=== PATIENT | female | born 1985 | race Caucasian/White ===

== ENCOUNTER 2023-06-04 09:54 | Outpatient (OUT) | payer BC, SELFPAY | END 2023-06-04 09:55 | disposition home or self-care (01) | LOC: SLEEP 09:54 | PROVIDERS: PCP Family Medicine; Visit Provider Family Medicine | DX: G47.33 Obstructive sleep apnea (adult) (pediatric) (principal); R06.83 Snoring; E11.9 Type 2 diabetes mellitus without complications | CPT/HCPCS: 95806 ==

== ENCOUNTER 2023-06-27 16:33 | Outpatient (OUT) | payer BC, SELFPAY ==
--- NOTE | 2023-06-27 | US_ITS ---
[address] [address] Patient Name: RAHUL LAGUNA MRN: [id number] date: 1985 Sex: F Assigned Patient Location: US Current Patient Location: Accession/Order Number: [id number] Exam Date: 06/27/2023 17:00 Report Date: 06/27/2023 18:17 At the request of: MAGGIE BENSON Procedure: US pelvis transvaginal PROCEDURE: US pelvis transvaginal, 06/27/2023 5:00 PM EDT CLINICAL INDICATIONS: Pelvic pain and pressure 6, para 4. Uncertain LMP. COMPARISON: 04/24/2022. TECHNIQUE: Transvaginal pelvic sonogram, mae scale and color assessment. FINDINGS: Uterus: 7.0 x 5.1 x 4.9 cm. Uterus is retroverted. Endometrial echo complex 1.0 cm. There is normal uterine sonographic morphology, no focal abnormality. Right ovary: 4.1 x 2.4 x 2.4 cm, volume 12 mL. Dominant follicle measures up to 1.6 x 1.5 x 1.3 cm. Mild crenulated margin is noted. Normal sonographic morphology. Left ovary: 2.3 x 2.3 x 2.1 cm, volume 6 mL. Subcentimeter follicle seen, normal sonographic morphology. DUPLEX PELVIC VASCULATURE: There is intact flow within the ovarian tissue bilaterally by color-flow assessment. Arterial spectral tracing is identified from within. Right resistive index 0.44, left 0.45. No significant free fluid. US/US pelvis transvaginal IMPRESSION: 1. Normal uterine and left ovarian sonographic morphology. 2. Retroverted uterus. 3. 1.6 cm mild complex corpus luteal cyst. 6-12 week follow-up sonography recommended. Electronically authenticated by: CHUCKIE BENNETT Date: 06/27/2023 18:17
== END 2023-06-27 16:34 | disposition home or self-care (01) ==
PROVIDERS: PCP Family Medicine; Visit Provider Obstetrics & Gynecology
DX: R10.2 Pelvic and perineal pain (principal)
CPT/HCPCS: 76830

== ENCOUNTER 2023-07-08 13:06 | Outpatient (OUT) | payer BC, SELFPAY | END 2023-07-08 13:07 | disposition home or self-care (01) | LOC: PST 13:06 | PROVIDERS: PCP Family Medicine; Visit Provider Obstetrics & Gynecology | DX: Z01.818 Encounter for other preprocedural examination (principal); N92.0 Excessive and frequent menstruation with regular cycle; N93.9 Abnormal uterine and vaginal bleeding, unspecified; R10.2 Pelvic and perineal pain ==

== ENCOUNTER 2023-07-18 08:30 | Day surgery (SDC) | payer BC, SELFPAY ==
[2023-07-18] VITALS (7 sets, daily range): BP systolic 105–126; BP diastolic 64–82; PULSE 69–78; RESP 10–24; TEMP 36.2; O2SAT 94–100; BMI 32.4
[2023-07-18 08:41] LABS: Basophils Percent Auto 0.5 % (0.2-2.0); Eosinophils Absolute Auto 0.2 10^3/uL (0.0-0.7); Hematocrit 37.2 % (36.0-48.0); Hemoglobin 13.4 g/dL (12.0-16.0); Immature Granulocytes Abs Auto 0.01 10^3/uL (0.00-0.03); Immature Granulocytes Pct Auto 0.1 % (0.0-0.5); Lymphocytes Absolute Auto 1.9 10^3/uL (1.2-3.8); Lymphocytes Percent Auto 25.6 % (20.5-60.0); Mean Corpuscular Hemoglobin 30.7 pg (26.7-34.0); Mean Corpuscular Volume 85.1 fL (81.0-99.0); Mean Platelet Volume 10.6 fL (9.5-13.5); Monocytes Absolute Auto 0.5 10^3/uL (0.3-0.8); Monocytes Percent Auto 6.8 % (1.7-12.0); Neutrophils Absolute Auto 4.8 10^3/uL (1.4-6.5); Platelet Count 292 10^3/uL (150-450); Red Blood Count 4.37 10^6/uL (4.20-5.40); Red Cell Distribution Width 13.2 % (11.0-15.0); White Blood Count 7.4 10^3/uL (4.0-11.0)
[2023-07-18] MEDS: LACTATED RINGER'S SOLUTION 1,000 ML 50 ML IV (09:00)
[2023-07-18 09:01] LABS: HCG Quantitative <1 mIU/mL
--- NOTE | 2023-07-18 10:40 | PM.ONB ---
Brief Operative Note Date of procedure: 07/18/23 Pre-op diagnosis: menorrhagia Post-op diagnosis: same as pre-op Procedure: NAME OF PROCEDURE:[ whitney endometrial ablation with hysteroscopy] PROCEDURE: The patient was taken back to the OR where she was prepped and draped in the normal sterile fashion after being placed in the dorsal lithotomy position, after being placed under general anesthesia without difficulty. The anterior lip was grasped with a single tooth tenaculum. The patient was then gently sounds. The patient was gently sounded using Hegar dilators and the hysteroscope was passed through the cervix into the uterus where both ostia were seen. No gross evidence of polyps, fibroids or malignancy. A weighted speculum was placed in the patient?s vagina, the anterior tip of the cervix was identified and grasped with a single tooth tenaculum. The patient was gently sounded to roughly 10 cm. The cervical length was noted to be 5 cm. The Whitney ablation apparatus was set to approximately 5 in length. This was placed in through the cervix and into the uterus. After the seal was tested, at that time the total ablation of 120 seconds was performed with the Whitney without difficulty. All instruments were removed from the vagina. Anesthesia: LONA Surgeon: Kaushik Richardson Estimated blood loss (mL): 5 Pathology: none sent Condition: stable Disposition: PACU
--- NOTE | 2023-07-18 11:01 | PC.NURSE ---
Peripad dry and intact
--- NOTE | 2023-07-18 11:37 | PC.NURSE ---
Medicated for lower abdominal cramping
--- NOTE | 2023-07-18 12:13 | PC.NURSE ---
Up to bathroom and voids clear yellow with small amount blood in toliet
== END 2023-07-18 12:16 | disposition home or self-care (01) ==
PROVIDERS: PCP Family Medicine; Visit Provider Obstetrics & Gynecology
PROC: (CPT 58563; principal; 2023-07-18 09:55)
DX: N92.0 Excessive and frequent menstruation with regular cycle (principal); N93.9 Abnormal uterine and vaginal bleeding, unspecified; R10.2 Pelvic and perineal pain; E28.2 Polycystic ovarian syndrome; E66.9 Obesity, unspecified; Z86.16 Personal history of COVID-19; F41.8 Other specified anxiety disorders; Z87.891 Personal history of nicotine dependence; Z68.31 Body mass index [BMI] 31.0-31.9, adult
CPT/HCPCS: 58563; 36415; 84702; 85025; J2704

== ENCOUNTER 2023-10-22 12:00 | Outpatient (OUT) | payer OTHER, SELFPAY ==
--- NOTE | 2023-10-22 12:13 | XR_ITS ---
The [address] [address] Patient Name: RAHUL LAGUNA MRN: [id number] date: 1985 Sex: F Assigned Patient Location: [facility] Current Patient Location: [facility] Accession/Order Number: [id number] Exam Date: 10/22/2023 12:20 Report Date: 10/24/2023 08:37 At the request of: BAIRON SCHUSTER Procedure: XR knee LT 3V PROCEDURE: XR knee LT 3V HISTORY: Left Leg Pain M79.605 ; acute left knee pain; no known injury COMPARISON: None. FINDINGS: BONES:No fracture, acute abnormality, or significant arthropathy. SOFT TISSUES:No visible soft tissue swelling. EFFUSION:None visible. OTHER: Negative. XR/XR knee LT 3V IMPRESSION: 1. Normal examination. Electronically authenticated by: AYDIN BLAS Date: 10/24/2023 08:37
--- NOTE | 2023-10-22 12:14 | US_ITS ---
The [address] [address] Patient Name: RAHUL LAGUNA MRN: [id number] date: 1985 Sex: F Assigned Patient Location: [facility] Current Patient Location: Accession/Order Number: [id number] Exam Date: 10/22/2023 12:20 Report Date: 10/23/2023 02:49 At the request of: BAIRON SCHUSTER Procedure: US venous doppler LE LT EXAMINATION: US venous doppler LE LT HISTORY: Left Leg Pain M79.605 COMPARISON: No relevant comparison available. FINDINGS: REGION: Left lower extremity THROMBI: None. COMPRESSIBILITY: Normal compressibility. FLOW: Normal waveform and antegrade flow between 5 and 20 cm/s. OTHER: None. US/US venous doppler LE LT IMPRESSION: 1. No deep vein thrombus within the left lower extremity. Electronically authenticated by: AYDIN BLAS Date: 10/23/2023 02:49
== END 2023-10-22 12:01 | disposition home or self-care (01) ==
PROVIDERS: PCP Family Medicine; Visit Provider Family Medicine
DX: M79.605 Pain in left leg (principal)
CPT/HCPCS: 73562; 93971

== ENCOUNTER 2024-04-06 21:47 | Emergency (ER) | payer OTHER, SELFPAY ==
[2024-04-06 21:52] VITALS: BP 149/83; TEMP 36.6; BMI 28.0
--- OUTSIDE RECORDS SUMMARY | 2024-04-06 21:59 | XMS_ITS | CCD ---
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 Unavailable Unavailable NELSON, MAXI H. Unavailable Unavailable BAIRON PERLA Unavailable Unavailable NELSON, MAXI H. Unavailable Unavailable NELSON, MAXI H. Unavailable Unavailable BAIRON PERLA Unavailable Unavailable Bairon Perla Unavailable Unavailable Unavailable Pan, Dr. Bairon Mcdowell [facility] Unavail able Abi, [place] [address] [place] Referring Unavailable Abi, [place] Attending Unavailable Abi, [place] Attending Unavailable Pan, Dr. Bairon Mcdowell [facility] Unavail able Abi, Junaid Referring Unavailable Abi, [place] Attending Unavailable HimanshumiDr. Griselda dinh Jr Referring U navailable Pan, Dr. Bairon Mcdowell [facility] Unavail able Abi, [place] [address] [place] Attending Unavailable Pan, Dr. Bairon Mcdowell Primary [facility] Unavail able Abi, Junaid Admitting Unavailable Abi, Junaid Referring Unavailable HOCaden ., DR WADDELL Primary Care Unavailable PAN ., DR WADDELL Admitting Unavailable HOY ., DR WADDELL Attending Unavailable HOY ., DR WADDELL Consulting Unavailable KELLEY ., DR SERRANO Attending Unavailable KELLEY ., DR SERRANO Consulting Unavailable KELLEY ., DR SERRANO Admitting Unavailable PAN ., DR WADDELL Primary Care Unavailable Allergies Allergy Classification Reported Allergen(s) Allergy Type Date of Onset Reaction(s) Facility (7 sources) bee pollen Allergy to substance (finding) MG-Otolaryngol [facility] Work Phone: (7 sources) Itraconazole; Translations: [Sporanox] Drug Allergy MG-Otolaryngol [facility] Work Phone: (1 source) Arlene monique pollen extract Drug Allergy 12-01-2015 [facility] Medications Completed/Discontinued Medications Medication Drug Class(es) Dates Sig (Normalized) Sig (Original) ALPRAZolam 0.5 mg oral tablet (2 sources) Benzodiazepine Start: 01-09-2023 ALPRAZolam 0.5 MG Oral Tablet Quantity: 5 Refills: 0 Ordered: 09-Jan-2023 DO Start : 09-Jan-2023 Active amoxicillin 875 mg / clavulanate 125 mg oral tablet (2 sources) Penicillin-class Antibacterial Start: 01-02-2022 End: 03-08-2022 take 1 tablet by mouth twice daily Amoxicillin-Pot Clavulanate 875-125 MG Oral Tablet TAKE 1 TABLET BY MOUTH TWICE DAILY Quantity: 60 Refills: 0 Ordered: 02-Jan-2022 DO Start : 02-Jan-2022 End : 08-Mar-2022 Complete 24 hr buPROPion hydrochloride 300 mg extended release oral tablet (9 sources) Aminoketone Start: 09-21-2021 take 1 tablet by mouth every twenty-four hours buPROPion HCl ER (XL) 300 MG Oral Tablet Extended Release 24 Hour Quantity: 90 Refills: 0 Ordered: 06-Dec-2021 DO Start : 21-Sep-2021 Active Start: 06-05-2021 End: 03-08-2022 take 1 tablet by mouth every twenty-four hours buPROPion HCl ER (XL) 150 MG Oral Tablet Extended Release 24 Hour Quantity: 90 Refills: 0 Ordered: 23-Oct-2021 DO Start : 05-Jun-2021 End : 08-Mar-2022 Complete dexamethasone 6 mg oral tablet (4 sources) Corticosteroid Start: 12-12-2021 End: 03-08-2022 Dexamethasone 6 MG Oral Tablet Quantity: 6 Refills: 0 Ordered: 12-Dec-2021 DO Start : 12-Dec-2021 End : 08-Mar-2022 Complete Start: 10-24-2021 End: 03-08-2022 Dexamethasone Sodium Phospha te 120 MG/30ML Injection Solution TAKE TO PT APPOINTMENT USE DIRECTED Quantity: 30 Refills: 0 Ordered: 26-Oct-2021 DO Start : 24-Oct-2021 End : 08-Mar-2022 Complete diclofenac sodium 75 mg delayed release oral tablet (4 sources) Nonsteroidal Anti-inflammatory Drug Start: 01-26-2021 End: 09-13-2022 Diclofenac Sodium 75 MG Oral Tablet Delayed Release Quantity: 30 Refills: 0 Ordered: 09-May-2021 DO Start : 26-Jan-2021 End : 13-Sep-2022 Complete Ethinyl Estradiol / Ferrous fumarate / Norethindrone (2 sources) Estrogen Start: 01-09-2023 Lo Loestrin Fe 1 MG-10 MCG / 10 MCG Oral Tablet Quantity: 28 Refills: 0 Ordered: 09-Jan-2023 DO Start : 09-Jan-2023 Active fluconazole 150 mg oral tablet (2 sources) Azole Antifungal Start: 01-02-2022 End: 03-08-2022 Fluconazole 150 MG Oral Tablet Quantity: 1 Refills: 0 Ordered: 11-Jan-2022 DO Start : 02-Jan-2022 End : 08-Mar-2022 Complete hydrOXYzine hydrochloride 25 mg oral tablet (2 sources) Antihistamine Start: 12-21-2021 End: 03-08-2022 hydrOXYzine HCl - 25 MG Oral Tablet Quantity: 120 Refills: 0 Ordered: 21-Dec-2021 DO Start : 21-Dec-2021 End : 08-Mar-2022 Complete ipratropium bromide 0.042 mg/actuat metered dose nasal spray (4 sources) Anticholinergic Start: 08-11-2023 Ipratropium Br omide 0.06 % Nasal Solution USE 2 SPRAYS IN EACH NOSTRIL 2-3 TIMES DAILY. Quantity: 1 Refills: 3 Ordered: 11-Aug-2023 Junaid Alex MD Start : 11-Aug-2023 Active Start: 01-03-2023 take 2 spray(s) nasa l route twice daily Ipratropium [place] 0.03 % Nasal Solution USE 2 SPRAYS IN EACH NOSTRIL TWICE DAILY. Quantity: 1 Refills: 5 Ordered: 03-Jan-2023 Junaid Alex MD Start : 03-Jan-2023 Active levoFLOXacin 500 mg oral tablet (2 sources) Quinolone Antimicrobial Start: 10-04-2021 End: 03-08-2022 levoFLOXacin 500 MG Oral Tablet Quantity: 10 Refills: 0 Ordered: 04-Oct-2021 DO Start : 04-Oct-2021 End : 08-Mar-2022 Complete liothyronine sodium 0.005 mg oral tablet (7 sources) l-Triiodothyronine Start: 03-01-2022 take 1 tablet by mouth once daily Liothyronine Sodium 5 MCG Oral Tablet TAKE 1 TABLET BY MOUTH EVERY DAY Quantity: 90 Refills: 0 Ordered: 01-Mar-2022 DO Start : 01-Mar-2022 Active 24 hr metFORMIN hydrochloride 500 mg extended release oral tablet (2 sources) Biguanide Start: 04-10-2022 take 1 tablet by mouth once daily metFORMIN HCl ER 500 MG Oral Tablet Extended Release 24 Hour TAKE 1 TABLET BY MOUTH DAILY Quantity: 90 Refills: 0 Ordered: 10-Apr-2022 DO Start : 10-Apr-2022 Active methylPREDNISolone 4 MG Oral Tablet Therapy Pack (2 sources) Start: 10-22-2021 End: 03-08-2022 methylPREDNISolone 4 MG Oral Tablet Therapy Pack Quantity: 21 Refills: 0 Ordered: 22-Oct-2021 DO Start : 22-Oct-2021 End : 08-Mar-2022 Complete metroNIDAZOLE 500 mg oral tablet (2 sources) Nitroimidazole Antimicrobial Start: 10-12-2021 End: 03-08-2022 metroNIDAZOLE 500 MG Oral Tablet Quantity: 30 Refills: 0 Ordered: 12-Oct-2021 DO Start : 12-Oct-2021 End : 08-Mar-2022 Complete Multi Vitamin TABS (7 sources) Multi Vitamin TA BS Quantity: 0 Refills: 0 Ordered: 08-Mar-2022 DO Active mupirocin 0.02 mg/mg topical ointment (7 sources) RNA Synthetase Inhibitor Antibacterial Start: 03-08-2022 Mupirocin 2 % External Ointment APPLY A SMALL AMOUNT 3 TIMES DAILY DIRECTED. Quantity: 1 Refills: 3 Ordered: 08-Mar-2022 Junaid Alex MD Start : 08-Mar-2022 Active phentermine hydrochloride 37.5 mg oral tablet (2 sources) Sympathomimetic Amine Anorectic Start: 07-09-2022 take 1 tablet by mouth once daily Phentermine HCl - 37.5 MG Oral Tablet TAKE 1 TABLET BY MOUTH EVERY DAY Quantity: 30 Refills: 0 Ordered: 23-Jul-2022 DO Start : 09-Jul-2022 Active predniSONE 20 mg oral tablet (2 sources) Start: 01-02-2022 End: 03-08-2022 predniSONE 20 MG Oral Tablet Quantity: 12 Refills: 0 Ordered: 02-Jan-2022 DO Start : 02-Jan-2022 End : 08-Mar-2022 Complete Probiotic CAPS (7 sources) Probiotic CAPS Quantity: 0 Refills: 0 Ordered: 08-Mar-2022 DO Active 0.25 mg, 0.5 mg dose 1.5 ml semaglutide 1.34 mg/ml pen injector (2 sources) Start: 11-11-2022 Ozempic (0.25 or 0.5 MG/DOSE) 2 MG/1.5ML SOPN INJECT 0.25 MG SUBCUTANEOUS ONCE A WEEK Quantity: 2 Refills: 0 Ordered: 12-Nov-2022 DO Start : 11-Nov-2022 Active Vitamin D3 CAPS (7 sources) Vitamin D3 CAPS Quantity: 0 Refills: 0 Ordered: 08-Mar-2022 DO Active Problems Active Problems Problem Classification Problem Date Documented Da te Episodic/Chronic Immunizations and screening for infectious disease (1 source) Encounter for screening for human papillomavirus (HPV); Translations: [ENC SCREENING HUMAN PAPILLOMAVIRUS] Onset: 3 Episodic Mood disorders (1 source) Mood disorders; Translations: [Depression, unspecified] Onset: 2 Other acquired deformities (7 sources) Finding of nasal deformity; Translations: [Acquired deformity of nose] Episodic Other gastrointestinal disorders (7 sources) History of gastroesophageal reflux disease; Translations: [Personal history of other diseases of digestive system] Episodic Other lower respiratory disease (7 sources) Difficulty breathing; Translations: [Other respiratory abnormalities] Episodic Other nervous system disorders (1 source) Other acute postprocedural pain; Translations: [Other acute postprocedural pain] Onset: 8 Episodic Other nervous system disorders (7 sources) Sense of smell impaired; Translations: [Disturbances of sensation of smell and taste] Episodic Other screening for suspected conditions (not mental disorders or infectious disease) (4 sources) Encounter for screening for malignant neoplasm of cervix; Translations: [ENC SCREENING MALIG NEOPLASM CERV] Onset: 3 Episodic Other skin disorders (7 sources) Swollen nose; Translations: [Swelling, mass, or lump in head and neck] Episodic Other upper respiratory disease (7 sources) Chronic rhinitis; Translations: [Chronic rhinitis] Chronic Other upper respiratory disease (7 sources) Deviated nasal septum; Translations: [Deviated nasal septum] Episodic Other upper respiratory disease (7 sources) Hypertrophy of nasal turbinates; Translations: [Hypertrophy of nasal turbinates] Episodic Other upper respiratory disease (7 sources) Incompetence of nasal valve; Translations: [Other disease of nasal cavity and sinuses] Episodic Other upper respiratory disease (7 sources) Nasal congestion; Translations: [Other disease of nasal cavity and sinuses] Episodic Residual codes; unclassified (7 sources) Swelling of body region; Translations: [Edema] Episodic Residual codes; unclassified (1 source) Pain, unspecified; Translations: [Pain, unspecified] Onset: 8 Screening and history of mental health and substance abuse codes (7 sources) H/O: depression; Translations: [Personal history of other mental disorders] Episodic Thyroid disorders (1 source) Hypothyroidism, unspecified; Translations: [Hypothyroidism, unspecified] Onset: 2 Chronic Past or Other Problems Problem Classification Problem Date Documented Da te Episodic/Chronic Other acquired deformities (1 source) Acquired deformity of nose; Translations: [Acquired deformity of nose] Onset: 09-06-2022 Episodic Other upper respiratory disease (3 sources) Hypertrophy of nasal turbinates; Translations: [Hypertrophy of nasal turbinates] Onset: 09-06-2022 Episodic Other upper respiratory disease (3 sources) Deviated nasal septum; Translations: [Deviated nasal septum] Onset: 09-06-2022 Episodic Other upper respiratory disease (4 sources) Other specified disorders of nose and nasal sinuses; Translations: [Other specified disorders of nose and nasal sinuses] Onset: 09-06-2022 Episodic Results Test Name Value Interpretation Reference Range Facility CBC AUTO DIFFon 04-25-2023 BASO # 0.0 103/ul Normal 0.0-0.1 [facility] Comment on above: Performed By: #### C BC #### [facility] [address] [place] [address] Dr. Gold Hartmann Basophils/100 WBC (Bld) 0.4 % Normal 0.2-2.0 [facility] Comment on above: Performed By: #### C BC #### [facility] [address] [place] [address] Dr. Gold Hartmann EO # 0.1 103/ul Normal 0.0-0.7 [facility] Comment on above: Performed By: #### C BC #### [facility] [address] [place] [address] Dr. Gold Hartmann Eosinophils/100 WBC (Bld) 1.5 % Normal 0.9-7.0 [facility] Comment on above: Performed By: #### C BC #### [facility] [address] [place] [address] Dr. Gold Hartmann Erythrocyte distribution width (RBC) [Ratio] 13.0 % Normal 11.0-15.0 [facility] Comment on above: Performed By: #### C BC #### [facility] [address] [place] [address] Dr. Gold Hartmann Hematocrit (Bld) [Volume fraction] 39.0 % Normal 36.0-48.0 [facility] Comment on above: Performed By: #### C BC #### [facility] [address] [place] [address] Dr. Gold Hartmann Hemoglobin (Bld) [Mass/Vol] 13.3 g/dL Normal 12.0-16.0 [facility] Comment on above: Performed By: #### C BC #### [facility] [address] [place] [address] Dr. Gold Hartmann IG # 0.02 10e3/ul Normal 0.00-0.03 [facility] Comment on above: Performed By: #### C BC #### [facility] [address] [place] [address] Dr. Gold Hartmann IG % 0.2 % Normal 0.0-0.5 [facility] Comment on above: Performed By: #### C BC #### [facility] [address] [place] [address] Dr. Gold Hartmann LYMPH # 2.3 103/ul Normal 1.2-3.8 [facility] Comment on above: Performed By: #### C BC #### [facility] [address] [place] [address] Dr. Gold Hartmann Lymphocytes/100 WBC (Bld) 27.6 % Normal 20.5-60.0 [facility] Comment on above: Performed By: #### C BC #### [facility] [address] [place] [address] Dr. Gold Hartmann MANUAL DIFF REQ NO Normal [facility] Comment on above: Performed By: #### C BC #### [facility] [address] [place] [address] Dr. Gold Hartmann MCH (RBC) [Entitic mass] 29.8 pg Normal 26.7-34.0 [facility] Comment on above: Performed By: #### C BC #### [facility] [address] [place] [address] Dr. Gold Hartmann MCHC (RBC) [Mass/Vol] 34.1 g/dL Normal 29.9-35.2 [facility] Comment on above: Performed By: #### C BC #### [facility] [address] [place] [address] Dr. Gold Hartmann MCV (RBC) [Entitic vol] 87.2 fL Normal 81.0-99.0 [facility] Comment on above: Performed By: #### C BC #### [facility] [address] [place] [address] Dr. Gold Hartmann MONO # 0.4 103/ul Normal 0.3-0.8 [facility] Comment on above: Performed By: #### C BC #### [facility] [address] [place] [address] Dr. Gold Hartmann Monocytes/100 WBC (Bld) 5.2 % Normal 1.7-12.0 [facility] Comment on above: Performed By: #### C BC #### [facility] [address] [place] [address] Dr. Gold Hartmann NEUT # 5.4 103/ul Normal 1.4-6.5 [facility] Comment on above: Performed By: #### C BC #### [facility] [address] [place] [address] Dr. Gold Hartmann Neutrophils/100 WBC (Bld) 65.1 % Normal 43.0-75.0 [facility] Comment on above: Performed By: #### C BC #### [facility] [address] [place] [address] Dr. Gold Hartmann Platelet mean volume (Bld) [Entitic vol] 10.2 fL Normal 9.5-13.5 [facility] Comment on above: Performed By: #### C BC #### [facility] [address] [place] [address] Dr. Gold Hartmann PLT 317 103/ul Normal 150-450 [facility] Comment on above: Performed By: #### C BC #### [facility] [address] [place] [address] Dr. Gold Hartmann RBC 4.47 106/ul Normal 4.20-5.40 [facility] Comment on above: Performed By: #### C BC #### [facility] [address] [place] [address] Dr. Gold Hartmann WBC 8.3 103/ul Normal 4.0-11.0 [facility] Comment on above: Performed By: #### C BC #### [facility] [address] [place] [address] Dr. Gold Hartmann FREE T3on 04-25-2023 FREE T3 2.90 pg/mlL Normal 2.18-3.98 [facility] Comment on above: Performed By: #### T SH, CMP, FT3, LIPID, T4 #### [facility] [address] [place] [address] Dr. Gold Hartmann GLYCOHEMOGLOBIN A1Con 2022 ADA RECOMMENDATION SEE BELOW Normal [facility] Comment on above: Result Comment: ADA RECOMMENDED LIMIT 4.0 - 6.0 ADA THERAPEUTIC TARGET < 7.0 ACTION SUGGESTED > 7.0 Performed By: #### A 1C #### [facility] [address] [place] [address] Dr. Gold Hartmann Glucose [Mass/Vol] 82 mg/dL Normal [facility] Comment on above: Performed By: #### A 1C #### [facility] [address] [place] [address] Dr. Gold Hartmann HbA1c (Bld) [Mass fraction] 4.5 % Normal 4.5-6.2 [facility] Comment on above: Performed By: #### A 1C #### [facility] [address] [place] [address] Dr. Gold Hartmann IRONon 04-25-2023 Iron [Mass/Vol] 69.0 ug/dL Normal 50.0-170.0 [facility] Comment on above: Performed By: #### V ITAD, IRON #### [facility] [address] [place] [address] Dr. Gold Hartmann LIPID PROFILEon 04-25-2023 CHOL-HDL RATIO NORM SEE BELOW Normal [facility] Comment on above: Result Comment: 3.3 - 4.4 LOW RISK 4.4 - 7.1 AVERAGE RISK 7.1 - 11.0 MODERATE RISK >11.0 HIGH RISK Performed By: #### T SH, CMP, FT3, LIPID, T4 #### [facility] [address] [place] [address] Dr. Gold Hartmann Cholesterol [Mass/Vol] 179 mg/dL Normal <=200 [facility] Comment on above: Performed By: #### T SH, CMP, FT3, LIPID, T4 #### [facility] [address] [place] [address] Dr. Gold Hartmann Cholesterol in HDL [Mass/Vol] 93 mg/dL Critically high 40-60 [facility] Comment on above: Performed By: #### T SH, CMP, FT3, LIPID, T4 #### [facility] [address] [address] [address] Gold Hartmann Cholesterol in LDL [Mass/Vol] 69.0 mg/dL Normal [facility] Comment on above: Performed By: #### T SH, CMP, FT3, LIPID, T4 #### [facility] [address] [place] [address] Dr. Gold Hartmann Cholesterol.total/Ch olesterol in HDL [Mass ratio] 1.9 {ratio} Normal [facility] Comment on above: Performed By: #### T SH, CMP, FT3, LIPID, T4 #### [facility] [address] [address] [address] Gold Hartmann HDL NORMAL > or = 60 mg/dl - LO W CARDIOVASCULAR RISK <40 mg/dl - HIGH CARDIOVASCULAR RISK Normal [facility] Comment on above: Performed By: #### T SH, CMP, FT3, LIPID, T4 #### [facility] [address] [address] [address] Gold Hartmann LDL CALC NORMAL SEE BELOW Normal [facility] Comment on above: Result Comment: <100 mg/dl OPTIMAL 100 - 129 mg/dl NEAR OR ABOVE OPTIMAL 130 - 159 mg/dl BORDERLINE HIGH 160 - 189 mg/dl HIGH >190 mg/dl VERY HIGH Performed By: #### T SH, CMP, FT3, LIPID, T4 #### [facility] [address] [address] [address] Gold Hartmann Triglyceride [Mass/Vol] 85 mg/dL Normal <=150 [facility] Comment on above: Performed By: #### T SH, CMP, FT3, LIPID, T4 #### [facility] [address] [place] [address] Dr. Gold Hartmann VLDL CALC 17.0 mg/dL Normal [facility] Comment on above: Performed By: #### T SH, CMP, FT3, LIPID, T4 #### [facility] [address] [place] [address] Dr. Gold Hartmann PROF 14(COMP METB)on 023 Albumin [Mass/Vol] 3.7 g/dL Normal 3.4-5.0 [facility] Comment on above: Performed By: #### T SH, CMP, FT3, LIPID, T4 #### [facility] [address] [place] [address] Dr. Gold Hartmann Albumin/Globulin [Mass ratio] 1.0 {ratio} Normal [facility] Comment on above: Performed By: #### T SH, CMP, FT3, LIPID, T4 #### [facility] [address] [place] [address] Dr. Gold Hartmann ALP [Catalytic activity/Vol] 75 U/L Normal 46-116 [facility] Comment on above: Performed By: #### T SH, CMP, FT3, LIPID, T4 #### [facility] [address] [place] [address] Dr. Gold Hartmann ALT [Catalytic activity/Vol] 22 U/L Normal 14-59 [facility] Comment on above: Performed By: #### T SH, CMP, FT3, LIPID, T4 #### [facility] [address] [place] [address] Dr. Gold Hartmann Anion gap [Moles/Vol] 11.9 mmol/L Normal [facility] Comment on above: Performed By: #### T SH, CMP, FT3, LIPID, T4 #### [facility] [address] [place] [address] Dr. Gold Hartmann AST [Catalytic activity/Vol] 14 U/L Critically low 15-37 [facility] Comment on above: Performed By: #### T SH, CMP, FT3, LIPID, T4 #### [facility] [address] [place] [address] Dr. Gold Hartmann Bilirubin [Mass/Vol] 0.5 mg/dL Normal 0.2-1.0 [facility] Comment on above: Performed By: #### T SH, CMP, FT3, LIPID, T4 #### [facility] [address] [place] [address] Dr. Gold Hartmann Calcium [Mass/Vol] 9.0 mg/dL Normal 8.5-10.1 [facility] Comment on above: Performed By: #### T SH, CMP, FT3, LIPID, T4 #### [facility] [address] [place] [address] Dr. Gold Hartmann Chloride [Moles/Vol] 104 mmol/L Normal 98-107 [facility] Comment on above: Performed By: #### T SH, CMP, FT3, LIPID, T4 #### [facility] [address] [place] [address] Dr. Gold Hartmann CO2 [Moles/Vol] 26.9 mmol/L Normal 21.0-32.0 [facility] Comment on above: Performed By: #### T SH, CMP, FT3, LIPID, T4 #### [facility] [address] [place] [address] Dr. Gold Hartmann Creatinine [Mass/Vol] 0.77 mg/dL Normal 0.55-1.02 [facility] Comment on above: Performed By: #### T SH, CMP, FT3, LIPID, T4 #### [facility] [address] [place] [address] Dr. Gold Hartmann EGFR-AF [place] >60 Normal >=60 [facility] Comment on above: Performed By: #### T SH, CMP, FT3, LIPID, T4 #### [facility] [address] [place] [address] Dr. Gold Hartmann EGFR-NON AF [place] >60 Normal >=60 [facility] Comment on above: Performed By: #### T SH, CMP, FT3, LIPID, T4 #### [facility] [address] [place] [address] Dr. Gold Hartmann Globulin (S) [Mass/Vol] 3.6 g/dL Normal [facility] Comment on above: Performed By: #### T SH, CMP, FT3, LIPID, T4 #### [facility] [address] [place] [address] Dr. Gold Hartmann Glucose [Mass/Vol] 79 mg/dL Normal 74-106 [facility] Comment on above: Performed By: #### T SH, CMP, FT3, LIPID, T4 #### [facility] [address] [place] [address] Dr. Gold Hartmann Potassium [Moles/Vol] 3.8 mmol/L Normal 3.5-5.1 [facility] Comment on above: Performed By: #### T SH, CMP, FT3, LIPID, T4 #### [facility] [address] [place] [address] Dr. Gold Hartmann Protein [Mass/Vol] 7.3 g/dL Normal 6.4-8.2 [facility] Comment on above: Performed By: #### T SH, CMP, FT3, LIPID, T4 #### [facility] [address] [place] [address] Dr. Gold Hartmann Sodium [Moles/Vol] 139 mmol/L Normal 136-145 [facility] Comment on above: Performed By: #### T SH, CMP, FT3, LIPID, T4 #### [facility] [address] [place] [address] Dr. Gold Hartmann Urea nitrogen [Mass/Vol] 11.0 mg/dL Normal 7.0-18.0 [facility] Comment on above: Performed By: #### T SH, CMP, FT3, LIPID, T4 #### [facility] [address] [place] [address] Dr. Gold Hartmann Urea nitrogen/Creatinine [Mass ratio] 14.3 mg/mg Normal [facility] Comment on above: Performed By: #### T SH, CMP, FT3, LIPID, T4 #### [facility] [address] [place] [address] Dr. Gold Hartmann T4on 04-25-2023 T4 [Mass/Vol] 12.50 ug/dL Normal 4.80-13.90 [facility] Comment on above: Performed By: #### T SH, CMP, FT3, LIPID, T4 #### [facility] [address] [place] [address] Dr. Gold Hartmann TSHon 04-25-2023 TSH 1.628 uIU/mL Normal 0.358-3.740 [facility] Comment on above: Performed By: #### T SH, CMP, FT3, LIPID, T4 #### [facility] [address] [place] [address] Dr. Gold Hartmann VITAMIN D 25 OHon 04-25-2023 VIT D 25-OH 64.4 ng/mL Normal [facility] Comment on above: Performed By: #### V ITAD, IRON #### [facility] [address] [place] [address] Dr. Gold Hartmann VIT D RANGES SEE BELOW Normal [facility] Comment on above: Result Comment: <20 ng/mL Vit D deficient 20 - <30 ng/mL Vit D insufficient 30 - 100 ng/mL Vit D sufficient >100 ng/mL Potential Toxicity Performed By: #### V ITAD, IRON #### [facility] [address], [place] [address] Dr. Gold Hartmann PAP ACOG PANEL 2: 30 to 65on 04-24-2023 Age Gdln ACOG Testing 30-65 Normal [facility] Comment on above: Performed By: #### [id number] #### [facility] [address], [place] [address] Dr. 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 History of Present Illnessdoing well after reconstructive rhinoplasty septum midline nasal airway patent bl continue saline sprays RTC 4-6 months Active Problems Chronic rhinitis (472.0) (J31.0) Decreased sense of smell (781.1) (R43.8) Difficulty breathing (786.09) (R06.89) Nasal deformity (738.0) (M95.0) Nasal septal deviation (470) (J34.2) Nasal turbinate hypertrophy (478.0) (J34.3) Nasal valve collapse (478.19) (J34.89) Nose congestion (478.19) (R09.81) Swelling of body region (782.3) (R60.9) Swollen nose (784.2) (R22.0) Past Medical History History of depression (V11.8) (Z86.59) History of gastroesophageal reflux (GERD) (V12.79) (Z87.19) Surgical History History of Cervical disc replacement History of Nasal septoplasty History of Sinus surgery Family History Family history of Alive and well Family history of Anxiety Family history of depression (V17.0) (Z81.8) Family history of Alive and well Family history of hypertension (V17.49) (Z82.49) Social History Lives with Non-smoker (V49.89) (Z78.9) Social alcohol use (V49.89) (Z78.9) Unemployed (V62.0) (Z56.0) Allergies Sporanox Recorded By: Linnea Sher; 03/08/2022 2:03:07 PM No Known Food Allergies Recorded By: Linnea Sher; 03/08/2022 2:03:07 PM Pollen Recorded By: Linnea Sher; 03/08/2022 2:03:07 PM Current Meds Medication NameInstruction ALPRAZolam 0.5 MG Oral Tablet buPROPion HCl ER (XL) 300 MG Oral Tablet Extended Release 24 Hour Ipratropium [place] 0.03 % Nasal SolutionUSE 2 SPRAYS IN EACH NOSTRIL TWICE DAILY. Liothyronine Sodium 5 MCG Oral TabletTAKE 1 TABLET BY MOUTH EVERY DAY Lo Loestrin Fe 1 MG-10 MCG / 10 MCG Oral Tablet metFORMIN HCl ER 500 MG Oral Tablet Extended Release 24 HourTAKE 1 TABLET BY MOUTH DAILY Multi Vitamin TABS Mupirocin 2 % External OintmentAPPLY A SMALL AMOUNT 3 TIMES DAILY DIRECTED. Ozempic (0.25 or 0.5 MG/DOSE) 2 MG/1.5ML Subcutaneous Solution Pen-injectorINJECT 0.25 MG SUBCUTANEOUS ONCE A WEEK Phentermine HCl - 37.5 MG Oral TabletTAKE 1 TABLET BY MOUTH EVERY DAY Probiotic CAPS Vitamin D3 CAPS 'Scores and Scales' Signatures Electronically signed by : Junaid Alex MD; Jan 24 2023 10:45AM EST (Author) Normal [facility] Tobacco Screening.on 023 Fall risk assessment c) Not medically indicated [facility] Work Phone: Tobacco use status CPHS b) No [facility] Work Phone: Established Visit (Otolaryng ology)on 09-13-2022 Established Visit (Otolaryngology) Diagnoses/Problems Difficulty breathing (786.09) (R06.89) History of Present Illness doing well. here for splint removal nasal splints removed nasal swelling expected septum midline nasal airway patent bl continue saline sprays and vaseline ointment to nares RTC 4-6 months Active Problems Chronic rhinitis (472.0) (J31.0) Decreased sense of smell (781.1) (R43.8) Difficulty breathing (786.09) (R06.89) Nasal deformity (738.0) (M95.0) Nasal septal deviation (470) (J34.2) Nasal turbinate hypertrophy (478.0) (J34.3) Nasal valve collapse (478.19) (J34.89) Nose congestion (478.19) (R09.81) Swelling of body region (782.3) (R60.9) Swollen nose (784.2) (R22.0) Past Medical History History of depression (V11.8) (Z86.59) History of gastroesophageal reflux (GERD) (V12.79) (Z87.19) Surgical History History of Cervical disc replacement History of Nasal septoplasty History of Sinus surgery Family History Family history of Alive and well Family history of Anxiety Family history of depression (V17.0) (Z81.8) Family history of Alive and well Family history of hypertension (V17.49) (Z82.49) Social History Lives with Non-smoker (V49.89) (Z78.9) Social alcohol use (V49.89) (Z78.9) Unemployed (V62.0) (Z56.0) Allergies Sporanox Recorded By: Linnea Sher; 03/08/2022 2:03:07 PM No Known Food Allergies Recorded By: Linnea Sher; 03/08/2022 2:03:07 PM Pollen Recorded By: Linnea Sher; 03/08/2022 2:03:07 PM Current Meds Medication NameInstruction buPROPion HCl ER (XL) 300 MG Oral Tablet Extended Release 24 Hour Liothyronine Sodium 5 MCG Oral TabletTAKE 1 TABLET BY MOUTH EVERY DAY Multi Vitamin TABS Mupirocin 2 % External OintmentAPPLY A SMALL AMOUNT 3 TIMES DAILY DIRECTED. Probiotic CAPS Vitamin D3 CAPS Vitals Vital Signs Recorded: 13Sep2022 10:53AM Height5 ft 3 in Wletqo880 lb 8 oz BMI Gopffpwubs00.67 kg/m2 BSA Calculated1.79 Tobacco Useb) No PHQ-2 #1. Over the last 2 weeks have you felt down, depressed or hopeless? (If yes, answer PHQ-9 below)No PHQ-2 #2. Over the last 2 weeks have you felt little interest or pleasure in doing things? (If yes, answer PHQ-9 below)No Falls Screening (Age 18+)a) No falls within the last year Pain Scale2/10 'Scores and Scales' Signatures Electronically signed by : Junaid Alex MD; Sep 14 2022 8:57AM EST (Author) Normal [facility] Tobacco Screening.on Adult depression screening assessment No [facility] Work Phone: Fall risk assessment a) No falls within the last year [facility] Work Phone: Tobacco use status CPHS b) No [facility] Work Phone: Order Reconciliationon 09-06 Order Reconciliation Page 1 Discharge Reconciliation Document Reconciliation Type: Discharge requested on behalf of Shaylee Juan (Resident) done by Shaylee Juan (Resident)) Discharge - Reconciliation: 06-Sep-2022 14:51 by: Shaylee Juan (Resident)) Home Medications EnteredHOME MEDICATIONS AT DISCHARGE DateReconciliation Comment/ Additional Information north 29-Aug-2022 13:25 north 29-Aug-2022 13:25 sandraa is continued as north buPROPion 300 mg/24 hours (XL) oral tablet, extended release 1 tab(s) orally every 24 hours 29-Aug-2022 13:24 buPROPion 300 mg/24 hours (XL) oral tablet, extended release 1 tab(s) orally every 24 hours 29-Aug-2022 13:24 buPROPion 300 mg/24 hours (XL) oral tablet, extended release is continued as buPROPion 300 mg/24 hours (XL) oral tablet, extended release liothyronine 5 mcg oral tablet 1 tab(s) orally once a day 29-Aug-2022 13:25 liothyronine 5 mcg oral tablet 1 tab(s) orally once a day 29-Aug-2022 13:25 liothyronine 5 mcg oral tablet is continued as liothyronine 5 mcg oral tablet mutivitamin 29-Aug-2022 13:25 mutivitamin 29-Aug-2022 13:25 mutivitamin is continued as mutivitamin pro biotic 1 cap(s) once a day 06-Sep-2022 12:06 pro biotic 1 cap(s) once a day 06-Sep-2022 12:06 pro biotic is continued as pro biotic Vitamin D3 125 mcg (5000 intl units) oral capsule 1 cap(s) orally once a day 29-Aug-2022 13:25 Vitamin D3 125 mcg (5000 intl units) oral capsule 1 cap(s) orally once a day 29-Aug-2022 13:25 Vitamin D3 125 mcg (5000 intl units) oral capsule is continued as Vitamin D3 125 mcg (5000 intl units) oral capsule Current OrdersDateHOME MEDICATIONS AT DISCHARGE DateReconciliation Comment/ Additional Information Acetaminophen Tablet (TYLENOL)DOSE = 650 mg Oral Every 4 Hours, PRN Pain - Mild (1-3) (PACU) when able to take OralClinician Notes: Brynn-operative order ONLY 06-Sep-2022 12:18 Acetaminophen is not required CEFAZOLIN 1GM INJ_IPRO SolutionGive 2 gram(s), IntraVenous, ONCE 06-Sep-2022 14:41 CEFAZOLIN 1GM INJ_IPRO is not required Dexamethasone 10 mg/mL 1 mL Vial PF_IPRO SolutionGive 4 mg, IntraVenous, ONCE 06-Sep-2022 14:41 Dexamethasone 10 mg/mL 1 mL Vial PF_IPRO is not required ePHEDrine 50 mg/mL 1 mL Ampule_IPRO SolutionGive 30 mg, IntraVenous, ONCE 06-Sep-2022 14:42 ePHEDrine 50 mg/mL 1 mL Ampule_IPRO is not required FENTANYL 50MCG/1ML 2ML INJ_IPRO SolutionGive 100 microgram(s), IntraVenous, ONCE 06-Sep-2022 14:42 FENTANYL 50MCG/1ML 2ML INJ_IPRO is not required HYDROmorphone 1 mg/mL 1 mL Ampule_IPRO SolutionGive 1 mg, IntraVenous, ONCE 06-Sep-2022 14:42 HYDROmorphone 1 mg/mL 1 mL Ampule_IPRO is not required HYDROmorphone Injectable (DILAUDID)DOSE = 0.2 mg IntraVenous Push Every 5 Minutes, PRN Pain - Mod (4-6) (PACU) if unable to take oralClinician Notes: Brynn-operative order ONLYMax total of 4 mg regardless of dose. 06-Sep-2022 12:18 HYDROmorphone Injectable is not required HYDROmorphone Injectable (DILAUDID)DOSE = 0.4 mg IntraVenous Push Every 5 Minutes, PRN Pain - Severe (7-10) (PACU)Clinician Notes: Brynn-operative order ONLYMax total of 4 mg regardless of dose. 06-Sep-2022 12:18 HYDROmorphone Injectable is not required Lactated Ringers Infusion IV Bag Volume = 1,000 mL Run at: 100 mL/hr IntraVenous Clinician Notes: Brynn-operative order ONLY 06-Sep-2022 12:18 Lactated Ringers Infusion is not required LIDOCAINE 2% PF 5ML VIAL_IPRO SolutionGive 80 mg, IntraVenous, ONCE 06-Sep-2022 14:42 LIDOCAINE 2% PF 5ML VIAL_IPRO is not required Methocarbamol 100 mg/mL Inj 10 mL_IPRO SolutionGive 1,000 mg, IntraVenous, ONCE 06-Sep-2022 14:42 Methocarbamol 100 mg/mL Inj 10 mL_IPRO is not required Metoclopramide Injectable (REGLAN)DOSE = 10 mg IntraVenous Push Once, PRN persistent PONV if first line ineffectiveClinician Notes: Brynn-operative order ONLY 06-Sep-2022 12:18 Metoclopramide Injectable is not required Midazolam 1 mg/mL Inj 2 mL_IPRO SolutionGive 2 mg, IntraVenous, ONCE 06-Sep-2022 14:42 Midazolam 1 mg/mL Inj 2 mL_IPRO is not required Naloxone Injectable (NARCAN)DOSE = 0.2 mg IntraVenous Push Once, PRN If patient RR below 10, obtunded or unarousableClinician Notes: DO NOT ADMINISTER UNTIL PHYSiCIAN HAS BEEN NOTIFIED AND ASSESSED PATIENT 06-Sep-2022 12:18 Naloxone Injectable is not required Ondansetron 4 mg/2 mL Inj_IPRO SolutionGive 4 mg, IntraVenous, ONCE 06-Sep-2022 14:42 Ondansetron 4 mg/2 mL Inj_IPRO is not required Ondansetron Injectable (ZOFRAN)DOSE = 4 mg IntraVenous Push Once, PRN PONV, first lineClinician Notes: Brynn-operative order ONLY 06-Sep-2022 12:18 Ondansetron Injectable is not required oxyCODONE Immediate Release Tablet (OXYIR, ROXICODONE)DOSE = 10 mg Oral Every 4 Hours, PRN Pain - Severe (7-10) (PACU) when able to take oralClinician Notes: Brynn-operative order ONLY 06-Sep-2022 12:18 oxyCODONE Immediate Release is not required o (more content not included)... Normal [facility] Patient Profile - Preop v3on 08-29-2022 Patient Profile - Preop v3 Patient Profile - Preop: Initial Info: Patient DemographicsName: RAHUL LAGUNA Date: 1985 Address: [address] [place] [address] Primary Phone [phone] How to be AddressedAmy Spoken Language PreferredEnglish Source of Informationpatient Stated Reason for AdmissionSinus surgery , septum repair Primary Contact Name and NumberEarle Rafael [phone] Limitations on Visitors/Phone Callsnone Medications Brought to Hospitalno General Health: Weight in kg77.4 kilogram(s) Weight in iqw584.6 pound(s) Weight Methodactual (measured) Scale Typestanding Height in feet5 feet Height in inches2.95 inch(es) Height in cm159.8 centimeter(s) Height Methodstated BMI (kg/m2)30.31 square meter Patient or Family Member Reaction to Anesthesiano previous reaction Blood Avoidance/Restrictionsn one Previous Transfusion Reactionno Health Mgmt: Symptoms/Conditions Managed at Homebehavioral health; endocrine; HEENT (head, eyes, ears, nose, throat); gastrointestinal Behavioral Health Symptoms/Conditionsanxi ety; depression Endocrine Symptoms/Conditionsthyr oid disease Gastrointestinal Symptoms/Conditions CommentIrritable bowel disease HEENT Symptoms/Conditions Comment breathing issues Barriers to Managing Healthnone Relationship/Environ: Lives Withspouse Living Arrangementshouse Resource/Environmental Concernsnone Anticipated Transition [place] [facility] Anticipated at Transitionnone Tobacco Use: Tobacco [facility] Pre-op Checklist: Arrival [id number] Arrival Time11:50 Procedure Typeseptoplasty, Turbinate reduction NPOyes Last Food [id number] 22:00 Last Clear Fluid [id number] 08:00 ID Band On Patientpatient ID (name), allergy Consent Signedpending H&P Completepending Anesthesia Assessment Completedyes EKG Performednot ordered HCG Urine TestComplete Soap and Water Bath the Night Before Surgerynot applicable Hair Washed with Shampoonot applicable Surgical Site Infection Preventionyes Pain Scales and Managementyes Additional Information: Information Review: Allergies, Home Meds and Significant Events have been Reviewed and Verified with Patient/Familyyes Significant Events: 06-Sep-2022 laparatomy: Past Surgical History, Active 29-Aug-2022 cervical discectomy: Past Surgical History, Active, 2018 29-Aug-2022 septoplasty: Past Surgical History, Active, 2009 Electronic Signatures: Katie Carbajal (LAI) (Signed 06-Sep-2022 12:11) Authored: Initial Info, General Health, Health Mgmt, Relationship/Environ, Tobacco Use, Pre-op Checklist, Additional Information Joaquin Pulido (JOEL) (Signed 29-Aug-2022 13:28) Authored: Initial Info, General Health, Health Mgmt, Additional Information Last Updated: 06-Sep-2022 12:11 by Katie Carbajal) [facility] Established Visit (Otolaryng ology)on 03-08-2022 Established Visit (Otolaryngology) Diagnoses/Problems History of Cervical disc replacement Chronic rhinitis (472.0) (J31.0) Decreased sense of smell (781.1) (R43.8) Difficulty breathing (786.09) (R06.89) Nasal deformity (738.0) (M95.0) Nasal septal deviation (470) (J34.2) Nasal turbinate hypertrophy (478.0) (J34.3) Nasal valve collapse (478.19) (J34.89) Nose congestion (478.19) (R09.81) Swollen nose (784.2) (R22.0) Swelling of body region (782.3) (R60.9) Orders Tobacco Use Screening; Status:Complete; Done: 08Mar2022 Start: Mupirocin 2 % External Ointment; APPLY A SMALL AMOUNT 3 TIMES DAILY DIRECTED Provider Impressions Assessment - This patient has a significant mechanical nasal obstruction. The cause is multifactorial, with an obvious nasal deformity, nasal bone deflection, 1 septal deviation with severe internal nasal valve narrowing, 1 turbinate hypertrophy, and static internal nasal valve collapse. There is some dynamic nasal valve collapse as well. Correction of this nasal obstruction will require a reconstructive rhinoplasty with major 1 septoplasty, repair of nasal valve collapse with structural grafting, and a bilateral turbinate reduction. We discussed the medical necessity of this at length, as well as the risks and limitations of the procedures. All questions were answered. Plan - Recommend reconstructive rhinoplasty with major septal repair with 1 septoplasty, nasal valve repair with structural grafting, and inferior turbinate reduction with lateralization. Revision nature may require auricular cartilage graft versus cadaveric rib graft 1 1 Amended By: Junaid Alex; Aug 19 2022 8:33 AM ESTHistory of Present Illness Reason for consult: Nasal obstruction. Referring Provider: Dr. Lee Chief Complaint: Obstructed breathing Constant, present year round, does not fluctuate. It affects the patients ability to sleep, exercise, and is troubling during the day. Symptoms began: years ago The patient has used nasal steroid sprays without any benefit > 6 weeks. 1 Site of obstruction: right side Previous surgery: previous nasal surgery including 1 septoplasty years ago Trauma history: denies Allergic rhinitis, sinusitis history: frequent congestion Smoking: denies Aesthetic concern: denies Past, family, and social history obtained but not pertinent to current problem other than documented in HPI: All other systems have been reviewed and are negative for complaint. Physical exam General: Well-developed and well-nourished in appearance. Skin: No rashes or concerning lesions on the visible portions of the skin. Eyes: Extraocular movements intact. Visual galloway grossly normal. Ears: Pinna are normal in shape and position. External canals are patent. Oral Cavity/Oropharynx: Dentition is intact. Mucous membranes moist. No masses or lesions. Tonsils are symmetric and non-obstructive. Neck: Midline trachea without masses or lesions. Thyroid is normal in size. Lymphatics: No palpable cervical lymphadenopathy Respiratory: No respiratory distress. Quiet breathing without stertor or stridor. Cardiovascular: Regular rate and rhythm. Warm extremities with equal pulses. Psych: Normal mood and affect. Judgement and insight appropriate. Neuro: Alert and oriented. CN II-XII grossly intact. No focal deficits. Musculoskeletal: Gait intact. Moves all extremities well without apparent deformities. A comprehensive facial exam was performed with the following highlights: middle vault narrowing significant dorsal twist 1 Septum: deviated to the R Inferior turbinates: hypertrophied bl Nasal valve angle: reduced bl Intranasal examination performed with limited view on anterior rhinoscopy. Procedures: Procedure: Rigid diagnostic nasal endoscopy Surgeon: Junaid Alex MD Anesthesia: None Timeout: Performed Findings: A 0-degree rigid endoscope was passed through the patient's bilateral naris. The first pass was along the floor of the nose to the nasopharynx. The second pass was to the area of the middle meatus. The third pass was to the sphenoethmoidal recess. Septum: Deviation is S shaped with bilateral obstruction approximately 90% without perforations nor synechia. Internal Nasal Valve: Angle is reduced, narrowing the nasal airway bilaterally. Right nasal cavity: Inferior turbinate: 2+ Inferior meatus: Clear, no discharge, no polyps/masses/lesions Middle meatus: Clear, no discharge, no polyps/masses/lesions Left nasal cavity: Inferior turbinate: 2+ Inferior meatus: Clear, no discharge, no polyps/masses/lesions Middle meatus: Clear, no discharge, no polyps/masses/lesions Nasopharynx: Clear, no discharge, no masses/lesions Modified yann maneuver with benefit bilaterally Modified Yann Maneuver: Performed with a cotton tipped applicator, markedly improves breathing bilaterally. 1 Amended By: Junaid Alex; Aug 19 2022 8:33 AM ESTPast Medical History History of depression (V11.8) (Z86.59) History of gastroe (more content not included)... Normal [facility] Tobacco Screening.on 022 Fall risk assessment a) No falls within the last year [facility] Work Phone: Tobacco use status CP b) No [facility] Work Phone: Coding Summary.on 02-06-2022 Coding Summary. [id number] Gh0 bWw+PGhlYWQ+JR5GMWPyH22 mdXUlnN4YR5iPSD5WAXPRDU IRMO3SLP2llVB4SWdcP1Hen iAv XfhhhEHyUH12DTt9SNU1xOr lSLhljY8qwLQdN0a3RjDpCK 59bZ76NImaWETxMsA9QiLyu jsgbWFy Y0ftPqBetMRmMgz+PHRhYmx lIHdpZHRoPScxMDAlJyBzdH bqWZ5mMi6bIPFeWZNvbNrqz HNlOiBj z3tzSLMjVVidDR7pyHhnO7J izDN7IHLsp2j7Wz28lOK+PH RdHFN1uLonKFzzf994LmKph 6cjLHN7 jBAoRNypQYC8E66vh7X5AIH nGOPqKXN7cWZ1gX7huFfrnp kmG0GwrLAcOgJ4UIT2pFWhh G1agLcb zzqdgM1wWea+U27HMK5XVFA ZSB1GKii2H7HeRvwcoGO+PC 37ZJCyEC61iWFfrRLnp0kdr Ti5LfEy JGLoBXR9xBsyDMegr9RcTEO wW09pmPFnw9T6DZYjhOryyX CqUgEmyHU0sB7pNJoeexiro 2hvdzsn Dmcoa2zqld51kU64U68lTCu gTYMlIIQ5JNFwGJSwjJstkp 1qtF3xSj1+MMydl4fai9ala Pv5PtGe QQWoiaAknGojQKN3i5JsVd6 1V8IuvNszi0NzQtu4mz21uE Vwu4X7xKG5HXmfJUFoyV9dI WxlZnQ6 CZHzBePeyK55eXJpSUaeRn2 fgGfkbFvwNO0nDZFopzngZG VpxE2nCEHlyXCgjDxjUD4qK TBpbjtm i288DkLvEWG6APUjqYHqN1U bjJ6cLuBgHTJoWMScC8EhpR QdOZfsI517CJldYfY2CDYlf lPzS9Re DGHexPtuGjV6c7H8Mp1Gy0X diicjHCS5KHmdDOTnFtX6Wz YiDfJ3B1UjBgb4CQCwnNgkK O7rO2Zw HDMntxjiomyglLD1KGXnOBU qbB68oEJtBDlgMv3ks8P4y7 72FVChBSIfoT29Xa0huAfsD TBwdCBU dG3xhjsmr6egghnvYcZqYRM uSHc5HLp2RRGnwMfpSlVvRE C5SiO3FRB3tHJdzU6upHhkb tbzxU4i Oyc+G85faO7eOKB3YNP6wlh gKHTefvPeRO08TA14N1ZaDv wvdGFibGU+PGRpdiBzdHlsZ M7dMvKv c4fzs3VdOIhtD3JoLCSgVUs mNlv1XGVyXLZ8lRP7wU5cSH OcOUoes7D8qKS1I4YuevCxc y6as0qb PHAyCOyjD59zdANrq3S3THE thGH2KVXhwYrpWtEtbM42Dw c+FLFhqDevq8DlOsspb7dbl 1yntCg7 DxKmGPNmrfSldJwuPBA8s1I eIg97Q70qFYzpZIQtGATfMM HoAVMgnTprxe2ksK3sAo4+P GNvbCB3 pXO3gO7oWTPhYkE2DKiqM05 6CpQskCIrOznaz8jrs3dbuJ x6VtHqQEGlysSskLhjSNT7x 3IsAm20 L10sBIeeARBaZEXaPPQhJYW itMcqac9nfN7yDv4+PC9jb2 wpjl80dN23eHU+IOXjGFB9w WxlPSdw APCodX9vTZwcWpH2CLVvPoG qmG42sBAuUIsaHl5mlExniE biAJ5nNDTjrwkia998IkMhy 2xkIDEw lREmRKnnPRB6F08ml4V8LPO pKAChTWI4pFG1eF0onYfhlr ogbGVmdDsgdmVydGljYWwtY DkpW343 IHRvcDsnPlBhdGllbnQgTmF jXOy2F6OeYuh8XLLjxFtaID 4qqCAcNIdrFb6xrIywySnrZ M9iQNGj pvzfq193QyZia0tpGBTzbZK tDBmcIZV6P92bc6Y1SCQbWM RcUEH9vTT8bR7hwPfwhrsnf GVmdDsg thHboXhhVYzcOAolZ095QVS ofTtuVkTfuoBfJKMybDI6KW 17OU02eROkn8C5zWC9S6UoH GRpbmct fqlunIG9ETOjTLFdsS00Vc2 xzOyxDv8sIWKgEJF1UHLwzG IrS9RzcR5eCcYqFSPdEJYyB 3RleHQt WPtdB188STfiLnL2LMIhvsH xI2AhJXUbjPcdLgL3b1A2Qe 7AV8L6YR37AC71uOWsz6Y7m ZH1D6Nc UNKzclzjypsizFP4XYDiHKE jtJ64Ss8orTjkLo0eYJCeEU I7IDJsnGXsK6MjgW5kHeRzJ DAwMDAw O5YppXQnKYyrB774LFjsRnT 7KZGoxsPeZ3YjMCEzgCtdDl A4q4W2Lc1GLEp0OM41VN30p TAok6M8 fXX3E5ReIPEkqnwvxxqzuNO 2SKCmCMIumU90Gr6jsSlfWd 9zIYJkCLC7IICkxCOeE8Elj N9rHkHv RVCvPMLrR8SwuPCaOOhdM09 2NJmtHnU8CKRqziYgU2QgXV JnuOwbPtM4x8Q4St7FTHWrN U46XCE1 cRV3IR79OU79H3DqGxayeDO ibGU+PHRhYmxlIHdpZHRoPS umWJGoWjKgrJxiFP5iLg1dS GVyLWNv gRultEDzMbLoz5deHJAdNJj cRL8wxWnmV0KhzTZ7DMKvs5 o6Er06X59nS7GdaCZ+PGNvb IX4eAV7 bA7tNcPgCpS1JYzlH893QgJ uxRHyWitty3fvf5oyyNa8Ec H2OPPhkwLkeXxrDPM6d7WnQ c41K67j IHdpZHRoPSIxNSUiIHZhbGl nam7mbR9aFb9+GCNxsDK6hN D2xN9lWnDrYaU2AJqmB041U nRvcCIv Xoert7rka9ykqXk3DvAdVFS pjoOyjCzlDOZ7e9LjNr55M3 SdnZebe1MwYtg0mb27wZMzy 5U1fZK1 U9IcZKEdwbjnxATfcVaiGL3 hTCZnnmgwLDWvwA8cRATfR6 q2GlLxLeA1NMrnX9ItmmF1S DEwcHQg GZzeXQY5T96ah3P2WOJlVQW vCHQ8dKQ7cO6onHxhwzzwoF VmdDsgdmVydGljYWwtYWxpZ 246IHRv zCpbDRHthA6jEIWzcYJatOd oWO3uOELcycsdNb7UEEUCQZ xMLCBBTVkgSjwvdGQ+PHRkI RU5aFat WNxfLPSppO8kOWVhC6c7ReS uFyJ8YNspO9QzDEAdmrgjZv 94gU7dEwTuKrA6CLgbV4Klu eI8KFDz jYUnJIauPVZ5X61vj2G1EZE tNHQeNHT9cDT4uT6nbGkffw ogbGVmdDsgdmVydGljYWwtY CfiE618 FRGeuWpaMaNpKxM4SqZ7UBD 7L6XhZvd2ZNDxlUeoQU5ppH QpDCcsRb3scCyhvGcnVA1pN TBpbjtw KRUkjE0hDOOpeFIvvCbsVI6 mJPNqkouzq419WbNnMVN8HA TdzYDyT1ZldL4sCiAtOEYoY BQzJ4Wc nBIyTKhxX720ARnbIvZ1IGC spdGwN5WiTYUeeUpoXgK7m7 T3Gs4xHVXIAIEuvokysWQ+P HRkIHN0 pUmjXLenCLHjsS9lKUSzV2b 3TbOcKmZ0GDxtM0VdIYQwpq siUh05mA8pEzInMmB0YHqwG 6QeenZ1 OQZugTTeFOizSBL9G17st1F 4AKTnPUDlBCQ7wEP1uR8vpH lnbjogbGVmdDsgdmVydGljY WwtYWxp T444OWGznGwcXlQceEYgVUz vdGQ+AEPgFIG6sXwwYZllQU JffS3zTLQhR3r4WcSkVwD0P RtjW9Zj TDUumxyyTg00zT7sXsPcDkL 2LYesO3MeycV1CVFuhRFxCB pdNUA0N35bw5Z5UJRjGKAsC CI9oPH1 dE4ccOqfwlettUSuqAvylaQ obUcgVNiaKHenC999IYWclK zwJq44tRQceEnjigZ4B5NoB jwvdHI+ GP22UUVoPJ74aQNseSZlf4v guBa2KcCiEBLvRWI5rYeiWN rtw9FiPQEgZ54njJZms8R5N GNvbGxh iHTpUiDkrGM7kD9dRGjtota sj0daffnrVmlex2upvz30tU 13H66uPVjiEXPqHEPlJGFlN HZhbGln zg9snE8uRl4+DSQlbPL9oQW 9hE3wKpWpSwL6DQczQ110Ic FxjCMmIzzft2fht9qjxOa5M jIwJSIg nkEkqZpdHBI8n8MuJw31Q00 sIHdpZHRoPSIyMCUiIHZhbG iwsn6qpF2qTz5+OD8vc6bfy h14jH66 dHI+IDJuQMU7aUeaONcuIEG mrF6vXCirKhW3FSNuFmLtoQ 48pDVpMAyyJw0mrEbkiDejA Y8aLMJb xbbsd328QmVyb6ggQQUjiBP iOJuvUVT6W03vc5I1EOHtZR YuRPS8mTZ9wQ9yfKpjvxnph GVmdDsg fpUqfJahRDcnNLlyX327WGR kiCiyZsSznVWhH2ymkiSUPK 1lOjwvdGQ+NJTqTRR2tFsvJ SdwYWRk mL4uCKUbZ5n0ApWeHkM1LGt hF0WwymL2BSYomRHhLOFggN ZUyQ4eulhqc6unmhfoCbZnL DAwMDt0 YBw4PZMnxSfsRdMzHPY6RnW 4DJG0lNHknG7lqJqfhzcrvK 9wOyc+RklOOjwvdGQ+PHRkI AW7fKcg NJqvMEDcsG8yPXTnD0p5AnN nIvF1WPlwT8OvcpE3RHZdzW GmQLVcaMLUjQ1kwkmjm4rbq jogIzAw DUIxYVi7SUp9KOEpoRtsJyO rRGN1XcK3EQJ4iHCpuB0jvP iiijkahR4gDoz+TVJOOjwvd GQ+PHRk AZX1uSixNMjxOTBsxT9vTBX hV7c8EsFpQrT3OXwuA7Ffvk F0QMLbeCZsDZQmePUCyT2bv inog9ge rmjbUiJeZRGwRIb6BBl3MNN wiMerUnRxJKU3KvV7GQK6zM OkbW6gcGyqykkqzL5pBmn+U YU2KGD0 UL86QL20G9MsPzpkdHPnbGS +PHRhYmxlIHdpZHRoPScxMD MrEeJuyOgeWY7nUi8gBWUpN WNvbGxh cHNl (more content not included)... Normal [facility] CT Maxillofacial w/o Contras ton 02-01-2022 CT Maxillofacial w/o Contrast Exam Date/Time: 02/01/2022 10:51 EST Reason for Exam: Chronic pansinusitis Report IMPRESSION: THE PARANAS[facility] SINUSES ARE WELL AERATED. EXAM: CT Maxillofacial w/o Contrast DATE: 02/01/2022 10:42 AM CLINICAL HISTORY: Chronic pansinusitis. COMPARISON: None available. TECHNIQUE: Multiple images axial images were obtained without contrast administration. 3-D sagittal and coronal reconstructions were performed. All CT scans at this facility use dose modulation, iterative reconstruction, and/or weight based dosing when appropriate to reduce radiation dose to as low as reasonably achievable. FINDINGS: The visualized intracranial portions are within normal limits. The orbits demonstrate no intra or extraconal lesions, the globes are intact. There is no fracture or subluxation. There are no lytic or sclerotic bone lesions. The frontal sinuses are well aerated. The ethmoid sinuses are within normal limits. The sphenoid sinuses are unremarkable. The maxillary sinuses are intact. The ostiomeatal complexes are patent. There is partial pneumatization of the left middle turbinate bone. There is moderate deviation of the nasal septum towards the right. The soft tissues are within normal limits. The mastoid air cells are within normal limits. The middle and inner ear structures Report are unremarkable. FINAL REPORT Dictated: 02/01/2022 2:52 pm Teja Olivas MD, V. Signed (Electronic Signature): 02/01/2022 2:52 pm Signed by: Teja Olivas MD, V. Transcribed by: JOHN Technologist: JOANNE Normal [facility] Consent for Treatmenton Consent for Treatment [id number] D:127 Normal [facility] Physician Orderon 01-29-2022 Physician Order [id number] D:127 Normal [facility] Physician Orderon 01-28-2022 Physician Order [id number] D:127 [facility] Physician Orderon 01-02-2022 Physician Order [id number] D:127 Normal [facility] FLUORO FOR SURGICAL PROCEDUR ESon 11-16-2018 FLUORO FOR SURGICAL PROCEDURES EXAMINATION: FLUOROSCOPY FOR SURGICAL PROCEDURES:CLINICAL HISTORY: PAIN.FINDINGS: Fluoroscopy time was 67 seconds. A total of 6 fluoroscopic images were obtained by Dr. Shi during the anterior cervical discectomy. Interbody fusion device seen positioned at C5-C6 disc space. Please refer to operative report for further details. IMPRESSION: FLUOROSCOPIC ASSISTANCE PROVIDED FOR OPERATIVE GUIDANCE.Interpreted by:ALONA Kayigned by:Jose A Webber MD11/16/18inal result Normal [facility] Surgical Specimenon 11-16-20 Surgical Specimen Invalid Interpretation Code [facility] Comment on above: Result Comment: [facility] [address] [place], [place] [id number] SURGICAL PATHOLOGY REPORTPatient Name: RAHUL LAGUNA Accession No: [id number] Age Sex: 1985 Location: DIS ORPOOLNONAccount No: [id number] Collected: 11/16/2018Med Rec No: [id number] Received: 11/16/2018Attend Phys: MAXI NELSON Completed: 11/17/2018Perform Phys: MAXI YOOFINAL DIAGNOSIS: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 ALIFA/ALIFACLINICAL INFORMATION:Cervical HNP, weakness.SPECIMEN:Cervical DiscGROSS DESCRIPTION:The specimen is received in formalin in a container is labeled with thepatient's name and designated as spine . The specimen consists ofmultiple grayish-white cartilaginous tissue fragments measuring inaggregate 2.0 x 1.5 x 0.3 cm. Sections mortician supplies sales representative are submitted inone cassette after a brief decalcification. ALIFA/SCDANCPT: [id number] THOMAS M.D. 11/17/2018 Electronically signed out by Page 1 of 1 Type and 3 cell Screen OB Ca ptureon 11-16-2018 Type and 3 cell Screen OB Capture PATIENT: RAFAEL Patino LOC: JUSTIN BUNN NONBILL# : [id number] : 1985 SEX: FORDERED BY: NELSON GERMAN ORDERED : 11/16/2018 08:38 COLLECTED: 11/16/2018 08:45ORDER : [id number] RECEIVED : 11/16/2018 08:46 TEST NAME RESULT UNITS RANGES ABN FL STABORH Capture A POS FAntibody 3 Cell Scrn Captu NEG F --------- Normal [facility] UR HCG Qualitativeon 018 HCG.beta subunit ( test) Ql (U) Negative Normal Detects [facility] Vital Signs Date Time Vital Sign Value Performing Clinician Facility 01-24-2023 12:11-0500 Body height 160.02 cm Bairon Tika GoSavecaden Work Phone: [facility] Work Phone: 01-24-2023 12:11-0500 Body mass index (BMI) [Ratio] 29.94 kg/m2 Bairon M Hoy Work Phone: [facility] Work Phone: 01-24-2023 12:11-0500 Body surface area Derived from formula 1.8 m2 Bairon M Hoy Work Phone: [facility] Work Phone: 01-24-2023 12:11-0500 Body weight 76.66 kg Bairon M Hoy Work Phone: [facility] Work Phone: 09-13-2022 10:53-0400 Body height 160.02 cm Bairon M Hoy Work Phone: [facility] Work Phone: 09-13-2022 10:53-0400 Body mass index (BMI) [Ratio] 29.67 kg/m2 Bairon M Hoy Work Phone: [facility] Work Phone: 09-13-2022 10:53-0400 Body surface area Derived from formula 1.79 m2 Bairon M Hoy Work Phone: [facility] Work Phone: 09-13-2022 10:53-0400 Body weight 75.98 kg Bairon M Hoy Work Phone: [facility] Work Phone: 09-13-2022 10:53-0400 0 1 Bairon M Hoy Work Phone: [facility] Work Phone: Comment on above: [facility] 03-08-2022 13:09-0400 Body height 160.02 cm Bairon Villela Hoy Work Phone: [facility] Work Phone: 03-08-2022 13:09-0400 Body mass index (BMI) [Ratio] 31.71 kg/m2 Bairon Villela Hoy Work Phone: [facility] Work Phone: 03-08-2022 13:09-0400 Body surface area Derived from formula 1.84 m2 Bairon Tika Hoy Work Phone: [facility] Work Phone: 03-08-2022 13:09-0400 Body temperature 97.5 [degF] Bairon Villela Hoy Work Phone: [facility] Work Phone: 03-08-2022 13:09-0400 Body weight 81.19 kg Bairon Villela Hoy Work Phone: [facility] Work Phone: 03-08-2022 13:09-0400 0 1 Bairon Villela Hoy Work Phone: [facility] Work Phone: Comment on above: [facility] Encounters Encounter Date Encounter Type Care Provider Facility Start: 08-11-2023 AUDIT Bairon Perla Work Phone[facility] Work Phone: Start: 04-28-2023 Encounter for genera l adult medical examination without abnormal findings DR BAIRON PERLA . [facility] Start: 04-25-2023 End: 04-26-[address] BAIRON PERLA . Facility:[facility] Start: 04-25-2023 End: 04-26-2023 Encounter for general adult medical examination without abnormal findings DR BAIRON PERLA . Facility:[facility] Start: 04-17-2023 End: 04-17-[address] MAGGIE BENSON . Facility:[facility] Start: 01-24-[address] Biaron Perla Facility:[id number] Start: 01-24-2023 Office outpatient vi sit 10 minutes Bairon Perla Work Phone: [facility] Work Phone: Start: 01-03-2023 AUDIT Bairon Perla Work Phone: [facility]omr[facility] Work Phone: Start: 09-13-2022 ambulatory [facility] Facility: [id number] Start: 09-13-2022 Patient encounter procedure Bairon Perla Work Phone: [facility] Work Phone: Start: 09-13-2022 Postop follow up vis it related to original px Bairon Perla Work Phone: [place]Psjfxagiesmtjx[facility] [place] Work Phone: Start: 09-06-2022 End: 09-06-2022 ambulatory [facility] Facility[facility] Start: 03-08-2022 Office consultation new/estab patient 60 min Bairon Perla Work Phone: [facility] Work Phone: Start: 03-08-2022 ambulatory [facility] Facility: [id number] Start: 11-16-2018 End: 11-19-2018 Patient encounter procedure [facility] Start: 11-16-2018 End: 11-16-2018 Patient encounter procedure [facility] Procedures Date Procedure Procedure Detail Performing Clinician Start: 11-16-2018 INCENTIVE SPIROMETRY RT MAXI NELSON Start: 11-16-2018 INCENTIVE SPIROMETRY RT MAXI NELSON Start: 11-16-2018 SURGICAL PATHOLOGY MAXI Y OO Start: 11-16-2018 FLUORO FOR SURGICAL PROCEDURES MAXI NELSON Start: 11-16-2018 INCENTIVE SPIROMETRY RT MAXI NELSON Start: 11-16-2018 SURGICAL PATHOLOGY MAXI Y OO Start: 11-16-2018 DISCHARGE PATIENT MAXI YO O Start: 11-16-2018 Continuous pulse oximetry MAXI NELSON Start: 11-16-2018 INITIATE OXYGEN THER APY PROTOCOL MAXI NELSON Start: 11-16-2018 ASSESS MAXI NELSON Start: 11-16-2018 BEDREST MAXI NELSON Start: 11-16-2018 ENCOURAGE DEEP BREAT GURDEEP AND COUGHING MAXI NELSON Start: 11-16-2018 INCENTIVE SPIROMETRY RT MAXI NELSON Start: 11-16-2018 NEURO/VASCULAR CHECKS B O NELSON Start: 11-16-2018 NOTIFY PHYSICIAN (SPECIFY) MAXI NELSON Start: 11-16-2018 NURSING COMMUNICATION B O NELSON Start: 11-16-2018 VITAL SIGNS MAXI NELSON Start: 11-16-2018 Urine test visual color cmprsn meths MAXI NELSON Start: 11-16-2018 TYPE AND SCREEN MAXI NELSON Nasal septoplasty Bairon Perla Work Phone: Nasal sinus procedure Ara Perla Work Phone: Prosthetic replaceme nt of cervical intervertebral disc Bairon Perla Work Phone: Plan of Treatment Date Care Activity Detail Author Start: 08-08-2023 FUV, Provider: Junaid Alex, Status: Pen, Time: 10:15 AM FUV, Provider: Junaid Alex, Status: Pen, Time: 10:15 AM [place] Work Phone: Start: 01-24-2023 FUV, Provider: Junaid Alex, Status: Pen, Time: 10:00 AM FUV, Provider: Junaid Alex, Status: Pen, Time: 10:00 AM [facility]kxphfrdmzjyxv[facility] Work Phone: Start: 09-06-2022 SURGWEST, Provider: Junaid Alex, Status: Pen, Time: 2:00 PM SURGWEST, Provider: Junaid Alex, Status: Pen, Time: 2:00 PM [facility]askn[facility] Work Phone: Payers Date Payer Category Payer Unknown [id number] 1985 Unknown [id number] 2.16.8 [id number] 1985 Unknown [id number] 2.16.8 [id number] 1985 Unknown [id number] 2.16. [id number] 1985 Unknown [id number] 2.16. [id number] 1985 Unknown [id number] 2.16. [id number] 1985 Unknown [id number] 2.16. [id number] 1985 Unknown [id number] 2.16.84 [id number] 1985 Unknown [id number] 2.16.84 [id number] 1961 Unknown [id number] Unknown COMMERCIAL Unknown [id number] Unknown [id number] Social History Date Type Detail Facility [facility] Work Phone: History of Present illness Narrative 01-24-2023 Note Date & Type Note Facility 01-24-2023 History of Present illness Narrative doing well after reconstructive rhinoplastyseptum midlinenasal airway patent blcontinue saline spraysRTC 4-6 months JY-Gglamxarpsifca-Gkaobws e Work Phone: Clinical Note 09-06-2022 Note Date & Type Note Facility 09-06-2022 Note PROCEDURE DETAILS Preoperative Diagnosis: Nasal obstruction, twisted nose deformity Postoperative Diagnosis: Nasal obstruction, twisted nose deformity Surgeon: Dr. Junaid Alex Resident/Fellow/Other Threading Machine Setter: Shaylee Song, PGY-3 Procedure: Open Septorhinoplasty with osteotomies, dorsal hump rasping and cartilage grafting, IT reduction Severe dorsal deflection prompting open revision septorhinoplasty approach. Estimated Blood Loss: 10cc Findings: Nose twisted to the right Scarred mucoperichondrial flap 2/2 prior nasal airway surgery dorsal hump and dorsal deflection Specimens(s) Collected: no, Patient Returned To/Condition: PACU, STABLE Operative Report: The patient presented with nasal obstruction. The patient was found to have significant nasal septal deviation, nasal valve collapse, and inferior turbinate hypertrophy. This was in the setting of previous nasal surgery which left residual deformity and obstruction. Significant dorsal deviation of the septum prompting septorhinoplasty through open approach. I discussed with the patient, in detail, the risks, benefits, limitations, and alternatives to the planned procedures. Risks discussed included but were not limited to infection, bleeding, septal perforation, synechia, need for further surgery, failure to achieve our desired results, worsened breathing, and worsened appearance. The patient expressed understanding of each of these complications and had all questions answered. DESCRIPTION OF PROCEDURE: The patient was brought to the operating room and placed in the supine position, then intubated under general anesthesia. The nose was injected with 1% lidocaine with epinephrine and then packed with decongestant-soaked pledgets. The face was prepped and draped in the usual sterile fashion. A transcolumellar incision was performed in an inverted-V fashion, which was continued into marginal incisions bilaterally using sharp scissors. The skin-soft tissue envelope was elevated in the supraperichondrial plane sharply over the nasal tip and midvault. The periosteum overlying the bony dorsum was then carefully elevated. The anterior septal angle was identified and mucoperichondrial flaps were elevated bilaterally. Significant scar tissue of the septum was encountered. There was a paucity of cartilage from previous nasal airway surgery as well as minimal septal support. Given revision nature of surgery, dorsal middle vault deflection and salazar asymmetry - a septorhinoplasty with osteotomies was opted as the best approach. The deviated septum was treated by removing deformed quadrangular cartilage and bony septum and septal cartilage was harvested, taking care to preserve a >1.0 cm L-shaped strut. The upper lateral cartilages were then from the dorsal septum bilaterally. The cartilaginous and bony dorsal hump was then excised en-bloc using an 11 blade and Olvera osteotome. The bony dorsum was then rasped using both the coarse and fine rasp, to further refine the profile line. This was performed in order to achieve excess upper lateral cartilage for auto-bail bonding agent technique. A right intermediate osteotomy was performed. Bilateral lateral osteotomies were performed with 3 mm osteotome. With dorsal hump reduction, auto-bail bonding agent grafts were then created with turn in of the upper lateral cartilage and suture fixed with 5-0 PDS in between the upper lateral cartilage and septum bilaterally, in order to treat the internal nasal valve, stabilize the midvault, and control/optimize the midvault width. The tip was stabilized using intradomal / interdomal sutures. Bilateral inferior turbinate reduction and lateralization was then performed. A Maps InDeed fine needle tip bovie electrocautery was used to perform intramural cauterization for submucous resection bilaterally. A Custer elevator was then used to outfracture the inferior turbinate bilaterally. We then turned our attention to closure. Meticulous skin closure was performed using 6-0 fast gut in a simple, interrupted fashion. The nose was gently cleansed with sterile saline and an external nasal splint was placed in the usual fashion. This concluded the goals of the procedure. The patient was turned over to Anesthesia, extubated, and transferred to the PACU. Attestation: Note Completion: Attending AttestationI was present for the entire procedure I am a:Resident/Fellow Electronic Signatures: Shaylee Juan (Resident)) (Signed 06-Sep-2022 15:00) Authored: Post-Operative Note, Chart Review, Note Completion Junaid Alex) (Signed 07-Sep-2022 10:31) Authored: Post-Operative Note, Chart Review, Note Completion Co-Signer: Post-Operative Note, Chart Review, Note Completion Last Updated: 07-Sep-2022 10:31 by Junaid Alex) [facility] Clinical Note 09-06-2022 Note Date & Type Note Facility 09-06-2022 Note History of Present I llness: /Lactating: Are You unable to answer Order Testorder urine test Are You Currently Breastfeedingunable to answer History Present Illness: Reason for surgery: Nasal Obstruction HPI: HPI(>30days): 36y/o male with nasal deformity, nasal bone deflection, septal deviation to the right with severe INV narrowing, turbinate hypertrophy, static and dynamic INV collapse PMH/PSH: Has had septoplasty years ago MEDS: Buproprion, Diclofenac, Liothyronine Allergies: Allergies: Sporanox: Hives/Urticaria Home Medication Review: Home Medications Reviewed: yes Impression/Procedure: Impression and Planned Procedure: Rhinoplasty, Septoplasty, nasal valve repair with structural grafting, IT reductionauricular cartilage vs cadevaric rib graft ERAS (Enhanced Recovery After Surgery): ERAS Patient: no Physical Exam by System: Respiratory/Thorax: Non-labored breathing Cardiovascular: Regular rate Consent: COVID-19 Consent: COVID-19 Risk ConsentSurgeon has reviewed bynum risks related to the risk of ranjan COVID-19 and if they contract COVID-19 what the risks are. Attestation: Note Completion: I am a: Resident/Fellow Attending AttestationI saw and evaluated the patient. I personally obtained the bynum and critical portions of the history and physical exam or was physically present for bynum and critical portions performed by the resident/fellow. I reviewed the resident/fellows documentation and discussed the patient with the resident/fellow. I agree with the resident/fellows medical decision making as documented in the note. I personally evaluated the patient [id number] Electronic Signatures: Shaylee Juan (Resident)) (Signed 06-Sep-2022 06:56) Authored: History of Present Illness, Allergies, Home Medication Review, Impression/Procedure, ERAS, Physical Exam, Consent, Note Completion Junaid Alex) (Signed 07-Sep-2022 10:14) Authored: Note Completion Co-Signer: History of Present Illness, Allergies, Home Medication Review, Impression/Procedure, ERAS, Physical Exam, Consent, Note Completion Last Updated: 07-Sep-2022 10:14 by Junaid Alex) [facility] History of Present illness Narrative Note Date & Type Note Facility History of Present illness Narrative Reason for consult: Nasal obstruction.Referring Provider: Dr. Arshad Complaint: Obstructed breathingConstant, present year round, does not fluctuate. It affects the patients ability to sleep, exercise, and is troubling during the day.Symptoms began: years agoThe patient has used nasal steroid sprays without any benefit.Site of obstruction: right sidePrevious surgery: previous septoplasty years agoTrauma history: deniesAllergic rhinitis, sinusitis history: frequent congestionSmoking: deniesAesthetic concern: deniesPast, family, and social history obtained but not pertinent to current problem other than documented in HPI:All other systems have been reviewed and are negative for complaint.Physical examGeneral: Well-developed and well-nourished in appearance.Skin: No rashes or concerning lesions on the visible portions of the skin.Eyes: Extraocular movements intact. Visual galloway grossly normal.Ears: Pinna are normal in shape and position. External canals are patent.Oral Cavity/Oropharynx: Dentition is intact. Mucous membranes moist. No masses or lesions. Tonsils are symmetric and non-obstructive.Neck: Midline trachea without masses or lesions. Thyroid is normal in size.Lymphatics: No palpable cervical lymphadenopathyRespiratory: No respiratory distress. Quiet breathing without stertor or stridor.Cardiovascular: Regular rate and rhythm. Warm extremities with equal pulses.Psych: Normal mood and affect. Judgement and insight appropriate.Neuro: Alert and oriented. CN II-XII grossly intact. No focal deficits.Musculoskeletal: Gait intact. Moves all extremities well without apparent deformities.A comprehensive facial exam was performed with the following highlights:middle vault narrowingSeptum: deviated to the RInferior turbinates: hypertrophied blNasal valve angle: reduced blIntranasal examination performed with limited view on anterior rhinoscopy.Procedures:Procedure: Rigid diagnostic nasal endoscopySurgeon: Ottoniel Hayesthesia: NoneTimeout: PerformedFindings: A 0-degree rigid endoscope was passed through the patient's bilateral naris. The first pass was along the floor of the nose to the nasopharynx. The second pass was to the area of the middle meatus. The third pass was to the sphenoethmoidal recess.Septum: Deviation is S shaped with bilateral obstruction approximately 90% without perforations nor synechia.Internal Nasal Valve: Angle is reduced, narrowing the nasal airway bilaterally.Right nasal cavity:Inferior turbinate: 2+Inferior meatus: Clear, no discharge, no polyps/masses/lesionsMiddle meatus: Clear, no discharge, no polyps/masses/lesionsLeft nasal cavity:Inferior turbinate: 2+Inferior meatus: Clear, no discharge, no polyps/masses/lesionsMiddle meatus: Clear, no discharge, no polyps/masses/lesionsNasopharynx: Clear, no discharge, no masses/lesionsModified yann maneuver with benefit bilaterallyModified Yann Maneuver: Performed with a cotton tipped applicator, markedly improves breathing bilaterally. [facility]-Lzlfhgwfqklmly-[facility] e Work Phone: History of Present illness Narrative Note Date & Type Note Facility History of Present illness Narrative Reason for consult: Nasal obstruction.Referring Provider: Dr. Arshad Complaint: Obstructed breathingConstant, present year round, does not fluctuate. It affects the patients ability to sleep, exercise, and is troubling during the day.Symptoms began: years agoThe patient has used nasal steroid sprays without any benefit > 6 weeks.Site of obstruction: right sidePrevious surgery: previous nasal surgery including septoplasty years agoTrauma history: deniesAllergic rhinitis, sinusitis history: frequent congestionSmoking: deniesAesthetic concern: deniesPast, family, and social history obtained but not pertinent to current problem other than documented in HPI:All other systems have been reviewed and are negative for complaint.Physical examGeneral: Well-developed and well-nourished in appearance.Skin: No rashes or concerning lesions on the visible portions of the skin.Eyes: Extraocular movements intact. Visual galloway grossly normal.Ears: Pinna are normal in shape and position. External canals are patent.Oral Cavity/Oropharynx: Dentition is intact. Mucous membranes moist. No masses or lesions. Tonsils are symmetric and non-obstructive.Neck: Midline trachea without masses or lesions. Thyroid is normal in size.Lymphatics: No palpable cervical lymphadenopathyRespiratory: No respiratory distress. Quiet breathing without stertor or stridor.Cardiovascular: Regular rate and rhythm. Warm extremities with equal pulses.Psych: Normal mood and affect. Judgement and insight appropriate.Neuro: Alert and oriented. CN II-XII grossly intact. No focal deficits.Musculoskeletal: Gait intact. Moves all extremities well without apparent deformities.A comprehensive facial exam was performed with the following highlights:middle vault narrowingsignificant dorsal twistSeptum: deviated to the RInferior turbinates: hypertrophied blNasal valve angle: reduced blIntranasal examination performed with limited view on anterior rhinoscopy.Procedures:Procedure: Rigid diagnostic nasal endoscopySurgeon: Ottoniel Hayesthesia: NoneTimeout: PerformedFindings: A 0-degree rigid endoscope was passed through the patient's bilateral naris. The first pass was along the floor of the nose to the nasopharynx. The second pass was to the area of the middle meatus. The third pass was to the sphenoethmoidal recess.Septum: Deviation is S shaped with bilateral obstruction approximately 90% without perforations nor synechia.Internal Nasal Valve: Angle is reduced, narrowing the nasal airway bilaterally.Right nasal cavity:Inferior turbinate: 2+Inferior meatus: Clear, no discharge, no polyps/masses/lesionsMiddle meatus: Clear, no discharge, no polyps/masses/lesionsLeft nasal cavity:Inferior turbinate: 2+Inferior meatus: Clear, no discharge, no polyps/masses/lesionsMiddle meatus: Clear, no discharge, no polyps/masses/lesionsNasopharynx: Clear, no discharge, no masses/lesionsModified yann maneuver with benefit bilaterallyModified Harnett Maneuver: Performed with a cotton tipped applicator, markedly improves breathing bilaterally. [facility]ucaix[facility] Work Phone: History of Present illness Narrative Note Date & Type Note Facility History of Present illness Narrative doing well. here for splint removalnasal splints removednasal swelling expectedseptum midlinenasal airway patent blcontinue saline sprays and vaseline ointment to naresRTC 4-6 months NF-Lwxpsryqvyfzsh-[facility]s Work Phone: Summary Purpose Family History Unknown Family Member Name Dates Details Alive and well: Father, Moth er Status:Active Family history of hypertensi on: Father(V17.49, Z82.49) Status:Active Family history of depression : Mother(V17.0, Z81.8) Status:Active Anxiety: Mother Status:Active Unknown Family Member Name Dates Details Alive and well: Father, Moth er Status:Active Family history of hypertensi on: Father(V17.49, Z82.49) Status:Active Family history of depression : Mother(V17.0, Z81.8) Status:Active Anxiety: Mother Status:Active Unknown Family Member Name Dates Details Alive and well: Father, Moth er Status:Active Family history of hypertensi on: Father(V17.49, Z82.49) Status:Active Family history of depression : Mother(V17.0, Z81.8) Status:Active Anxiety: Mother Status:Active Unknown Family Member Name Dates Details Alive and well: Father, Moth er Status:Active Family history of hypertensi on: Father(V17.49, Z82.49) Status:Active Family history of depression : Mother(V17.0, Z81.8) Status:Active Anxiety: Mother Status:Active Unknown Family Member Name Dates Details Alive and well: Father, Moth er Status:Active Family history of hypertensi on: Father(V17.49, Z82.49) Status:Active Family history of depression : Mother(V17.0, Z81.8) Status:Active Anxiety: Mother Status:Active Unknown Family Member Name Dates Details Alive and well: Father, Moth er Status:Active Family history of hypertensi on: Father(V17.49, Z82.49) Status:Active Family history of depression : Mother(V17.0, Z81.8) Status:Active Anxiety: Mother Status:Active Unknown Family Member Name Dates Details Alive and well: Father, Moth er Status:Active Family history of hypertensi on: Father(V17.49, Z82.49) Status:Active Family history of depression : Mother(V17.0, Z81.8) Status:Active Anxiety: Mother Status:Active Advance Directives No Advanced Directives Records FoundNo Advanced Directives Records FoundNo Advanced Directives Records FoundNo Advanced Directives Records FoundNo Advanced Directives Records Found Chief Complaint 4 month FUV, s/p open septorhinoplasty 09/06/2022. Additional Source Comments INFORMATION SOURCE (unrecogn ized section and content) DATE CREATED AUTHOR 11/21/2018 [facility] DATE CREATED AUTHOR AUTHOR'S ORGANIZ ATION 02/17/2022 [place] [facility] DATE CREATED AUTHOR AUTHOR'S ORGANIZ ATION 01/25/2023 [facility] DATE CREATED AUTHOR AUTHOR'S ORGANIZ ATION 01/25/2023 [facility] DATE CREATED AUTHOR AUTHOR'S DONALD ATION 05/09/2023 [facility] FOR RECORDS PERTAINING TO PATIENTS WHO ARE OR HAVE BEEN ENROLLED IN A CHEMICAL DEPENDENCY/SUBSTANCEABUSE PROGRAM, SOME INFORMATION MAY BE OMITTED. This clinical summary was aggregated from multiple sources. Caution should be exercised in using it in the provision of clinical care. This summary normalizes information from multiple sources, and as a consequence, information in this document may materially change the coding, format and clinical context of patient data. In addition, data may be omitted in some cases. CLINICAL DECISIONS SHOULD BE BASED ON THE PRIMARY CLINICAL RECORDS. [facility] [employer] [facility]. provides no warranty or guarantee of the accuracy or completeness of information in this document.
--- NOTE | 2024-04-06 22:59 | XR_ITS ---
The [address] [address] Patient Name: RAHUL LAGUNA MRN: [id number] date: 1985 Sex: F Assigned Patient Location: ER Current Patient Location: ER Accession/Order Number: [id number] Exam Date: 04/06/2024 23:25 Report Date: 04/06/2024 23:59 At the request of: ELISHA MARKER Procedure: XR ankle RT 2V EXAM: XR ankle RT 2V HISTORY: dog bite COMPARISON: None. TECHNIQUE: 2 views of the right ankle were obtained. FINDINGS: No acute fracture or dislocation is seen. The joint spaces are preserved. The ankle mortise is not well evaluated due to patient positioning. There is no significant right ankle joint effusion. No definite radiopaque foreign body is seen. XR/XR ankle RT 2V IMPRESSION: 1. No acute fracture or dislocation or definite radiopaque foreign body about the right ankle is seen. Electronically authenticated by: Kavin TELLEZ Date: 04/06/2024 23:59
--- NOTE | 2024-04-06 22:59 | ED.ANIMALBI1 ---
HPI - Animal Bite General Chief Complaint: Animal Bite Stated Complaint: lower Injury Dog BITE Time Seen by Provider: 04/06/24 22:51 Source: patient Mode of arrival: walk-in History of Present Illness HPI narrative: This 38-year-old female presents for evaluation after her dog bit her in the right foot and ankle. The patient states that the dog is blind in one eye and was lying on the floor with a paper towel roll. The patient was walking by and she thinks that the dog who has food in progression thought that she was going to take it from the dog. He lashed out and bit her on the right foot and ankle. She states that after he bit her uterus held on and was shaking her ankle. She has pain in the medial and lateral aspects of the right ankle. She has puncture wounds over the lateral malleolus and medial malleolus and 2 puncture wounds on the anterior surface of her right foot. She does not know the date of her last tetanus shot. No additional injuries or complaints. Related Data Home Medications ?Medication ?Instructions ?Recorded ?Confirmed ashwagandha extract 120 mg capsule mg PO 07/08/23 bupropion HCl 300 mg 24 hr tablet, 300 mg PO QDAY 07/08/23 07/18/23 extended release cetirizine 10 mg capsule (All Day 10 mg PO DAILY PRN allergy symptoms 07/08/23 07/18/23 Allergy (cetirizine)) cholecalciferol (vitamin D3) 50 50 mcg PO DAILY 07/08/23 07/18/23 mcg (2,000 unit) capsule lactobacillus combination no.4 3 3,000 mmu cells PO DAILY 07/08/23 07/18/23 billion cell capsule (Probiotic) liothyronine 5 mcg tablet 5 mcg PO QDAY 07/08/23 07/18/23 Allergies Allergy/AdvReac Type Severity Reaction Status Date / Time itraconazole [From Sporanox] Allergy Hives Verified 04/06/24 21:56 Review of Systems ROS Status of ROS 10 or more systems reviewed and unremarkable except as noted in history and below [facility] Medical History (Updated 04/07/24 @ 00:21 by Pilar Van MD) History of blood transfusion ?Z92.89 - Personal history of other medical treatment (ICD-10) IBS (irritable bowel syndrome) ?K58.9 - Irritable bowel syndrome without diarrhea (ICD-10) Hypothyroidism ?E03.9 - Hypothyroidism, unspecified (ICD-10) Polycystic ovarian syndrome ?E28.2 - Polycystic ovarian syndrome (ICD-10) Deviated nasal septum ?J34.2 - Deviated nasal septum (ICD-10) Anxiety ?F41.9 - Anxiety disorder, unspecified (ICD-10) Depression ?F32.A - Depression, unspecified (ICD-10) COVID-19 ?U07.1 - COVID-19 (ICD-10) Chronic pansinusitis ?J32.4 - Chronic pansinusitis (ICD-10) Anemia ?D64.9 - Anemia, unspecified (ICD-10) Pelvic pain ?R10.2 - Pelvic and perineal pain (ICD-10) Abnormal uterine bleeding (AUB) ?N93.9 - Abnormal uterine and vaginal bleeding, unspecified (ICD-10) Menorrhagia ?N92.0 - Excessive and frequent menstruation with regular cycle (ICD-10) Surgical History (Updated 07/08/23 @ 12:34 by Odette Hendrix NP) History of dilation and curettage ?Z98.890 - Other specified postprocedural states (ICD-10) H/O sinus surgery ?Z98.890 - Other specified postprocedural states (ICD-10) H/O nasal septoplasty ?Z98.890 - Other specified postprocedural states (ICD-10) H/O laparoscopy ?Z98.890 - Other specified postprocedural states (ICD-10) H/O cervical discectomy ?Z98.890 - Other specified postprocedural states (ICD-10) Family History (Updated 07/08/23 @ 12:34 by Odette Hendrix NP) Other Family history of cancer Family history of diabetes mellitus Family history of emphysema Family history of hypertension Social History (Updated 07/08/23 @ 12:31 by Odette Hendrix NP) Within the past year, how often did you have a drink containing alcohol: 2-4 times a month Smoking status: Former smoker Non-prescribed substance use: denies use 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 Blood pressure is elevated 149/83 General: The patient appears well and in no apparent distress. Patient is resting comfortably on cart. Skin: Warm, dry, no pallor noted. There is no rash noted. Head: Normocephalic, atraumatic Cardiovascular: Regular Rate and Rhythm Respiratory: Patient is in no distress, no accessory muscle use, lungs are clear to auscultation, no wheezing, rales or rhonchi Back: non-tender, no CVA tenderness bilaterally to percussion. Musculoskeletal: There are superficial puncture wounds on the medial and lateral malleolus. There Are 2 puncture wounds/less than 0.5 cm lacerations on the dorsal aspect of the right foot, one at the mid foot and one overlying the 3rd metatarsal. Feet are otherwise warm and sensate. Neurological: A&O x4, normal speech Psychiatric: Cooperative Constitutional Vital Signs, click to edit/add: Last Vital Signs Temp 97.9 F 04/06/24 21:52 Resp 16 04/06/24 21:52 BP 149/83 H 04/06/24 21:52 O2 Del Method Room Air 04/06/24 21:52 Course Vital Signs Vital signs: Vital Signs Temperature 97.9 F 04/06/24 21:52 Respiratory Rate 16 04/06/24 21:52 Blood Pressure 149/83 H 04/06/24 21:52 Oxygen Delivery Method Room Air 04/06/24 21:52 Temperature 97.9 F 04/06/24 21:52 Respiratory Rate 16 04/06/24 21:52 Blood Pressure 149/83 H 04/06/24 21:52 Oxygen Delivery Method Room Air 04/06/24 21:52 MDM - Animal Bite MDM Narrative Medical decision making narrative: This 38-year-old female presents after her dog who is immunized and up to date on his shots bit her on the right foot and ankle where she has 2 lacerations and puncture wounds. The wounds were cleaned with Betadine scrub. Tetanus was updated. She is medicated in emergency department with a dose of Augmentin, Purdys and Zofran. X-ray of the right ankle was ordered due to pain in this area and is negative for acute findings. Steristrips were applied over the foot lacerations to approximate the tissue. She will be discharged home with Augmentin, zofran, Diflucan and given 2 norco to use as needed for pain. Medical Records Medical records narrative: [facility] [place] [facility] [address] [place] [address] XRay Report Signed Patient: RAHUL LAGUNA MR#: [id number] : 1985 Acct:[id number] Age/Sex: 38 / F ADM Date: 04/06/24 Loc: ER Attending Dr: Ordering Physician: Pilar Van Date of Service: 04/06/24 Procedure(s): XR ankle RT 2V Accession Number(s): [id number] cc: Ferdinand Perla M.D.; Pilar Marker~ The [address] [address] Patient Name: RAHUL LAGUNA MRN: [id number] date: 1985 Sex: F Assigned Patient Location: ER Current Patient Location: ER Accession/Order Number: [id number] Exam Date: 04/06/2024 23:25 Report Date: 04/06/2024 23:59 At the request of: PILAR MARKER Procedure: XR ankle RT 2V EXAM: XR ankle RT 2V HISTORY: dog bite COMPARISON: None. TECHNIQUE: 2 views of the right ankle were obtained. FINDINGS: No acute fracture or dislocation is seen. The joint spaces are preserved. The ankle mortise is not well evaluated due to patient positioning. There is no significant right ankle joint effusion. No definite radiopaque foreign body is seen. XR/XR ankle RT 2V IMPRESSION: 1. No acute fracture or dislocation or definite radiopaque foreign body about the right ankle is seen. Discharge Plan Discharge Stand Alone Forms: Portal Instructions Chief Complaint: Animal Bite Clinical Impression: Puncture wound, Dog bite Patient Disposition: Home, Self-Care Time of Disposition Decision: 00:20 Condition: Good Prescriptions / Home Meds: No Action bupropion HCl 300 mg tablet extended release 24 hr 300 mg PO QDAY liothyronine 5 mcg tablet 5 mcg PO QDAY Probiotic 3 billion cell capsule 3,000 mmu cells PO DAILY Rx Instructions: administer with a meal cholecalciferol (vitamin D3) 50 mcg (2,000 unit) capsule 50 mcg PO DAILY ashwagandha extract 120 mg capsule PO All Day Allergy (cetirizine) 10 mg capsule 10 mg PO DAILY PRN (Reason: allergy symptoms) Print Language: Amharic Referrals: Ferdinand Perla MD [Primary Care Provider] - 1 week
[2024-04-06] MEDS: AMOXICILLIN/POTASSIUM CLAV 1 TAB TABLET PO (23:10)
[2024-04-06] MEDS: ONDANSETRON 4 MG RAPDIS TABLET SL (23:10)
[2024-04-06] MEDS: HYDROCODONE/ACET 5-325 MG TABLET 1 TAB PO (23:10)
[2024-04-06] MEDS: LIDOCAINE HCL 1% 100 MG/10 ML MDV INJ (23:11)
[2024-04-06] MEDS: ADACEL DIPH,PERTUSS(ACELL),TET VAC/PF 0.5 ML ADULT SYRINGE IM (23:11)
[2024-04-07] MEDS: HYDROCODONE/ACET 5-325 MG TABLET 2 TAB PO (00:38)
== END 2024-04-07 00:41 | disposition home or self-care (01) ==
PROVIDERS: Emergency Provider Emergency Medicine; PCP Family Medicine
DX: S91.031A Puncture wound without foreign body, right ankle, initial encounter (principal); S91.331A Puncture wound without foreign body, right foot, initial encounter; W54.0XXA Bitten by dog, initial encounter; K58.9 Irritable bowel syndrome, unspecified; E03.9 Hypothyroidism, unspecified; E28.2 Polycystic ovarian syndrome; Z79.899 Other long term (current) drug therapy; F41.9 Anxiety disorder, unspecified; Z86.16 Personal history of COVID-19; F32.A Depression, unspecified; Z87.891 Personal history of nicotine dependence; Z23 Encounter for immunization
CPT/HCPCS: 73600; 90471; 90715; 99283

== ENCOUNTER 2024-05-18 19:50 | Outpatient (REF) | payer OTHER, SELFPAY ==
--- OUTSIDE RECORDS SUMMARY | 2024-05-18 20:06 | XMS_ITS ---
Patient Summarization (C-CDA 2.1 CCD) Created on: May 18, 2024 RAHUL LAGUNA : 1985 Sex: Female Author Organization Sample organization Care Team Providers Care Production Helper Name Role Phone NELSON, MAXI H. Unavailable Unavailable NELSON, MAXI H. Unavailable Unavailable KANEY BAIRON M Unavailable Unavailable NELSON, MAXI H. Unavailable Unavailable NELSON, MAXI H. Unavailable Unavailable HOY, BAIRON M Unavailable Unavailable Hoy Bairon M Unavailable Unavailable Unavailable Pan, Dr. Bairon Mcdowell [facility] Unavail able Abi, Junaid Referring Unavailable Abi, Junaid Attending Unavailable Abi, Junaid Attending Unavailable Hoy, Dr. Bairon [facility]cd[facility] Unavail able Abi, [place] Referring Unavailable Bai, Junaid Attending Unavailable Timmis Jr, Dr. Griselda Price Referring U navailable Hoy, Dr. Bairon Mcd[facility] Unavail able Abi, Junaid Attending Unavailable Hoy, Dr. Bairon Mcdowell [facility] Unavail able Abi, Junaid Admitting Unavailable Abi, Junaid Referring Unavailable HOY ., DR WADDELL Primary Care Unavailable HOY ., DR WADDELL Admitting Unavailable HOY ., DR WADDELL Attending Unavailable HOY ., DR WADDELL Consulting Unavailable KELLEY ., DR SERRANO Attending Unavailable KELLEY ., DR SERRANO Consulting Unavailable KELLEY ., DR SERRANO Admitting Unavailable HOY ., DR WADDELL Primary Care Unavailable Allergies Allergy Classification Reported Allergen(s) Allergy Type Date of Onset Reaction(s) Facility (7 sources) bee pollen Allergy to substance (finding) MG-Otolaryngol [facility] Work Phone: (7 sources) Itraconazole; Translations: [Sporanox] Drug Allergy MG-Otolaryngol [facility] Work Phone: (1 source) Arlene monique pollen extract Drug Allergy 12-01-2015 [facility] Repository Encounters Encounter Date Encounter Type Care Provider Facility Start: 08-11-2023 AUDIT Bairon Perla Work Phone: [facility] Work Phone: Start: 04-28-2023 Encounter for genera l adult medical examination without abnormal findings DR BAIRON PERLA . [facility] Start: 04-25-2023 End: 04-26-[address] BAIRON PERLA . Facility:H1 Start: 04-25-2023 End: 04-26-2023 Encounter for general adult medical examination without abnormal findings DR BAIRON PERLA . Facility:H1 Start: 04-17-2023 End: 04-17-[address] MAGGIE BENSON . Facility:[facility]1 Start: 01-24-[address] Bairon Perla Facility:[id number] Start: 01-24-2023 Office outpatient vi sit 10 minutes Bairon Perla Work Phone: EF-Sshisksmpwczlx-Cuc [place] Work Phone: Start: 01-03-2023 AUDIT Bairon Perla Work Phone: PI-Jbplamrhoackzu-Crk [address] Work Phone: Start: 09-13-2022 ambulatory [facility] Facility: [id number] Start: 09-13-2022 Patient encounter procedure Bairon Perla Work Phone: VI-Cyridneewcmnkt-Qoi [place] Work Phone: Start: 09-13-2022 Postop follow up vis it related to original px Bairon Perla Work Phone: TH-Wqhhlkwoonlusq-Glh [place] Work Phone: Start: 09-06-2022 End: 09-06-2022 ambulatory [facility] Facility:[facility] [place] [facility] Start: 03-08-2022 Office consultation new/estab patient 60 min Bairon Perla Work Phone: TX-Anshtqigngdpjj-Nzq [place] Work Phone: Start: 03-08-2022 ambulatory Junaid Alex Facility: [id number] Start: 11-16-2018 End: 11-19-2018 Patient encounter procedure [facility] Start: 11-16-2018 End: 11-16-2018 Patient encounter procedure [facility] Medications Completed/Discontinued Medications Medication Drug Class(es) Dates [...] spray(s) nasa l route twice daily Ipratropium Butler 0.03 % Nasal Solution USE 2 SPRAYS [...] 0 Refills: 0 Ordered: 08-Mar-2022 DO Active Payers Date Payer Category Payer Unknown [id number] 1985 Unknown [id number] 2.16.8 [id number] 1985 Unknown [id number] 2.16.8 [id number] 1985 Unknown [id number] 2.16. [id number] 1985 Unknown [id number] 2.16. [id number] 1985 Unknown [id number] 2.16. [id number] 1985 Unknown [id number] 2.16. [id number] 1985 Unknown [id number] 2.16.84 [id number] 1985 Unknown [id number] 2.16.84 [id number] 1961 Unknown [id number] Unknown COMMERCIAL Unknown [id number] Unknown [id number] Plan of Treatment Date Care Activity Detail Author Start: 08-08-2023 FUV, Provider: Junaid Alex, Status: Pen, Time: 10:15 AM FUV, Provider: Junaid Alex, Status: Pen, Time: 10:15 AM AM-Vasrfcdpteoboo-Pcv [place] Work Phone: Start: 01-24-2023 FUV, Provider: Junaid Alex, Status: Pen, Time: 10:00 AM FUV, Provider: Junaid Alex, Status: Pen, Time: 10:00 AM QP-Ypyfsnhjevfapu-Xou [place] Work Phone: Start: 09-06-2022 SURGWEST, Provider: Junaid Alex, Status: Pen, Time: 2:00 PM SURGWEST, Provider: Junaid Alex, Status: Pen, Time: 2:00 PM WF-Kmlkhoknwvaxwm-Kck [place] Work Phone: Problems Active Problems Problem Classification Problem Date [...] nose and nasal sinuses] Onset: 09-06-2022 Episodic Procedures Date Procedure Procedure Detail Performing Clinician [...] AND SCREEN MAXI NELSON Nasal septoplasty Bairon Tika Posse Work Phone: Nasal sinus procedure Ara dinh Tika Posse Work Phone: Prosthetic replaceme nt of cervical intervertebral disc Bairon Tika Posse Work Phone: Results Test Name Value Interpretation Reference Range Facility CBC AUTO DIFFon 04-25-2023 BASO # 0.0 103/ul Normal 0.0-0.1 [facility] Comment on above: Performed By: #### C BC #### [facility] [address] [place] [address] Dr. Gold Hartmann Basophils/100 WBC (Bld) 0.4 % Normal 0.2-2.0 [facility] Comment on above: Performed By: #### C BC #### [facility] [address] [place] [address] Dr. Gold Hartmann EO # 0.1 103/ul Normal 0.0-0.7 [facility] Comment on above: Performed By: #### C BC #### [facility] [address] [place] [address] Dr. Gold Hartmann Eosinophils/100 WBC (Bld) 1.5 % Normal 0.9-7.0 [facility] Comment on above: Performed By: #### C BC #### [facility] [address] [place] [address] Dr. Gold Hartmann Erythrocyte distribution width (RBC) [Ratio] 13.0 % Normal 11.0-15.0 [facility] Comment on above: Performed By: #### C BC #### [facility] [address] [place] [address] Dr. Gold Hartmann Hematocrit (Bld) [Volume fraction] 39.0 % Normal 36.0-48.0 [facility] Comment on above: Performed By: #### C BC #### [facility] [address] [place] [address] Dr. Gold Hartmann Hemoglobin (Bld) [Mass/Vol] 13.3 g/dL Normal 12.0-16.0 [facility] Comment on above: Performed By: #### C BC #### [facility] [address] [place] [address] Dr. Gold Hartmann IG # 0.02 10e3/ul Normal 0.00-0.03 [facility] Comment on above: Performed By: #### C BC #### [facility] [address] [place] [address] Dr. Gold Hartmann IG % 0.2 % Normal 0.0-0.5 [facility] Comment on above: Performed By: #### C BC #### [facility] [address] [place] [address] Dr. Gold Hartmann LYMPH # 2.3 103/ul Normal 1.2-3.8 [facility] Comment on above: Performed By: #### C BC #### [facility] [address] [place] [address] Dr. Gold Hartmann Lymphocytes/100 WBC (Bld) 27.6 % Normal 20.5-60.0 [facility] Comment on above: Performed By: #### C BC #### [facility] [address] [place] [address] Dr. Gold Hartmann MANUAL DIFF REQ NO Normal [facility] Comment on above: Performed By: #### C BC #### [facility] [address] [place] [address] Dr. Gold Hartmann MCH (RBC) [Entitic mass] 29.8 pg Normal 26.7-34.0 [facility] Comment on above: Performed By: #### C BC #### [facility] [address] [place] [address] Dr. Gold Hartmann MCHC (RBC) [Mass/Vol] 34.1 g/dL Normal 29.9-35.2 [facility] Comment on above: Performed By: #### C BC #### [facility] [address] [place] [address] Dr. Gold Hartmann MCV (RBC) [Entitic vol] 87.2 fL Normal 81.0-99.0 [facility] Comment on above: Performed By: #### C BC #### [facility] [address] [place] [address] Dr. Gold Hartmann MONO # 0.4 103/ul Normal 0.3-0.8 [facility] Comment on above: Performed By: #### C BC #### [facility] [address] [place] [address] Dr. Gold Hartmann Monocytes/100 WBC (Bld) 5.2 % Normal 1.7-12.0 [facility] Comment on above: Performed By: #### C BC #### [facility] [address] [place] [address] Dr. Gold Hartmann NEUT # 5.4 103/ul Normal 1.4-6.5 [facility] Comment on above: Performed By: #### C BC #### [facility] [address] [place] [address] Dr. Gold Hartmann Neutrophils/100 WBC (Bld) 65.1 % Normal 43.0-75.0 [facility] Comment on above: Performed By: #### C BC #### [facility] [address] [place] [address] Dr. Gold Hartmann Platelet mean volume (Bld) [Entitic vol] 10.2 fL Normal 9.5-13.5 [facility] Comment on above: Performed By: #### C BC #### [facility] [address] [address] [address] Gold Hartmann PLT 317 103/ul Normal 150-450 [facility] Comment on above: Performed By: #### C BC #### [facility] [address] [address] [address] Gold Hartmann RBC 4.47 106/ul Normal 4.20-5.40 [facility] Comment on above: Performed By: #### C BC #### [facility] [address] [place] [address] Dr. Gold Hartmann WBC 8.3 103/ul Normal 4.0-11.0 [facility] Comment on above: Performed By: #### C BC #### [facility] [address] [place] [address] Dr. Gold Hartmann FREE T3on 04-25-2023 FREE T3 2.90 pg/mlL Normal 2.18-3.98 [facility] Comment on above: Performed By: #### T SH, CMP, FT3, LIPID, T4 #### [facility] [address] [place] [address] Dr. Gold Hartmann GLYCOHEMOGLOBIN A1Con 2022 ADA RECOMMENDATION SEE BELOW Normal [facility] Comment on above: Result Comment: ADA RECOMMENDED LIMIT 4.0 - 6.0 ADA THERAPEUTIC TARGET < 7.0 ACTION SUGGESTED > 7.0 Performed By: #### A 1C #### [facility] [address] [place] [address] Dr. Gold Hartmann Glucose [Mass/Vol] 82 mg/dL Normal [facility] Comment on above: Performed By: #### A 1C #### [facility] [address] [place] [address] Dr. Gold Hartmann HbA1c (Bld) [Mass fraction] 4.5 % Normal 4.5-6.2 [facility] Comment on above: Performed By: #### A 1C #### [facility] [address] [place] [address] Dr. Gold Hartmann IRONon 04-25-2023 Iron [Mass/Vol] 69.0 ug/dL Normal 50.0-170.0 [facility] Comment on above: Performed By: #### V ITAD, IRON #### [facility] [address] [place] [address] Dr. Gold Hartmann LIPID PROFILEon 04-25-2023 CHOL-HDL RATIO NORM SEE BELOW Normal [facility] Comment on above: Result Comment: 3.3 - 4.4 LOW RISK 4.4 - 7.1 AVERAGE RISK 7.1 - 11.0 MODERATE RISK >11.0 HIGH RISK Performed By: #### T SH, CMP, FT3, LIPID, T4 #### [facility] [address] [address] [address] Gold Hartmann Cholesterol [Mass/Vol] 179 mg/dL Normal <=200 [facility] Comment on above: Performed By: #### T SH, CMP, FT3, LIPID, T4 #### [facility] [address] [address] [address] Gold Hartmann Cholesterol in HDL [Mass/Vol] 93 mg/dL Critically high 40-60 [facility] Comment on above: Performed By: #### T SH, CMP, FT3, LIPID, T4 #### [facility] [address] [place] [address] Dr. Gold Hartmann Cholesterol in LDL [Mass/Vol] 69.0 mg/dL Normal [facility] Comment on above: Performed By: #### T SH, CMP, FT3, LIPID, T4 #### [facility] [address] [place] [address] Dr. Gold Hartmann Cholesterol.total/Ch olesterol in HDL [Mass ratio] 1.9 {ratio} Normal [facility] Comment on above: Performed By: #### T SH, CMP, FT3, LIPID, T4 #### [facility] [address] [place] [address] Dr. Gold Hartmann HDL NORMAL > or = 60 mg/dl - LO W CARDIOVASCULAR RISK <40 mg/dl - HIGH CARDIOVASCULAR RISK Normal [facility] Comment on above: Performed By: #### T SH, CMP, FT3, LIPID, T4 #### [facility] [address] [address] [address] Gold Hartmann LDL CALC NORMAL SEE BELOW Normal [facility] Comment on above: Result Comment: <100 mg/dl OPTIMAL 100 - 129 mg/dl NEAR OR ABOVE OPTIMAL 130 - 159 mg/dl BORDERLINE HIGH 160 - 189 mg/dl HIGH >190 mg/dl VERY HIGH Performed By: #### T SH, CMP, FT3, LIPID, T4 #### [facility] [address] [address] [address] Gold Hartmann Triglyceride [Mass/Vol] 85 mg/dL Normal <=150 [facility] Comment on above: Performed By: #### T SH, CMP, FT3, LIPID, T4 #### [facility] [address] [address] [address] Gold Hartmann VLDL CALC 17.0 mg/dL Normal [facility] Comment on above: Performed By: #### T SH, CMP, FT3, LIPID, T4 #### [facility] [address] [address] [address] Gold Hartmann PROF 14(COMP METB)on 023 Albumin [Mass/Vol] 3.7 g/dL Normal 3.4-5.0 [facility] Comment on above: Performed By: #### T SH, CMP, FT3, LIPID, T4 #### [facility] [address] [address] [address] Gold Hartmann Albumin/Globulin [Mass ratio] 1.0 {ratio} Normal [facility] Comment on above: Performed By: #### T SH, CMP, FT3, LIPID, T4 #### [facility] [address] [address] [address] Gold Hartmann ALP [Catalytic activity/Vol] 75 U/L Normal 46-116 [facility] Comment on above: Performed By: #### T SH, CMP, FT3, LIPID, T4 #### [facility] [address] [address] [address] Gold Hartmann ALT [Catalytic activity/Vol] 22 U/L Normal 14-59 [facility] Comment on above: Performed By: #### T SH, CMP, FT3, LIPID, T4 #### [facility] [address] [address] [address] Gold Hartmann Anion gap [Moles/Vol] 11.9 mmol/L Normal [facility] Comment on above: Performed By: #### T SH, CMP, FT3, LIPID, T4 #### [facility] [address] [place] [address] Dr. Gold Hartmann AST [Catalytic activity/Vol] 14 U/L Critically low 15-37 [facility] Comment on above: Performed By: #### T SH, CMP, FT3, LIPID, T4 #### [facility] [address] [place] [address] Dr. Gold Hartmann Bilirubin [Mass/Vol] 0.5 mg/dL Normal 0.2-1.0 [facility] Comment on above: Performed By: #### T SH, CMP, FT3, LIPID, T4 #### [facility] [address] [place] [address] Dr. Gold Hartmann Calcium [Mass/Vol] 9.0 mg/dL Normal 8.5-10.1 [facility] Comment on above: Performed By: #### T SH, CMP, FT3, LIPID, T4 #### [facility] [address] [place] [address] Dr. Gold Hartmann Chloride [Moles/Vol] 104 mmol/L Normal 98-107 [facility] Comment on above: Performed By: #### T SH, CMP, FT3, LIPID, T4 #### [facility] [address] [place] [address] Dr. Gold Hartmann CO2 [Moles/Vol] 26.9 mmol/L Normal 21.0-32.0 [facility] Comment on above: Performed By: #### T SH, CMP, FT3, LIPID, T4 #### [facility] [address] [place] [address] Dr. Gold Hartmann Creatinine [Mass/Vol] 0.77 mg/dL Normal 0.55-1.02 [facility] Comment on above: Performed By: #### T SH, CMP, FT3, LIPID, T4 #### [facility] [address] [address] [address] Gold Hartmann EGFR-AF GHANAIAN >60 Normal >=60 [facility] Comment on above: Performed By: #### T SH, CMP, FT3, LIPID, T4 #### [facility] [address] [address] [address] Gold Hartmann EGFR-NON AF GHANAIAN >60 Normal >=60 [facility] Comment on above: Performed By: #### T SH, CMP, FT3, LIPID, T4 #### [facility] [address] [place] [address] Dr. Gold Hartmann Globulin (S) [Mass/Vol] 3.6 g/dL Normal [facility] Comment on above: Performed By: #### T SH, CMP, FT3, LIPID, T4 #### [facility] [address] [place] [address] Dr. Gold Hartmann Glucose [Mass/Vol] 79 mg/dL Normal 74-106 [facility] Comment on above: Performed By: #### T SH, CMP, FT3, LIPID, T4 #### [facility] [address] [place] [address] Dr. Gold Hartmann Potassium [Moles/Vol] 3.8 mmol/L Normal 3.5-5.1 [facility] Comment on above: Performed By: #### T SH, CMP, FT3, LIPID, T4 #### [facility] [address] [address] [address] Gold Hartmann Protein [Mass/Vol] 7.3 g/dL Normal 6.4-8.2 [facility] Comment on above: Performed By: #### T SH, CMP, FT3, LIPID, T4 #### [facility] [address] [place] [address] Dr. Gold Hartmann Sodium [Moles/Vol] 139 mmol/L Normal 136-145 [facility] Comment on above: Performed By: #### T SH, CMP, FT3, LIPID, T4 #### [facility] [address] [address] [address] Gold Hartmann Urea nitrogen [Mass/Vol] 11.0 mg/dL Normal 7.0-18.0 [facility] Comment on above: Performed By: #### T SH, CMP, FT3, LIPID, T4 #### [facility] [address] [place] [address] Dr. Gold Hartmann Urea nitrogen/Creatinine [Mass ratio] 14.3 mg/mg Normal [facility] Comment on above: Performed By: #### T SH, CMP, FT3, LIPID, T4 #### [facility] [address] [address] [address] Gold Hartmann T4on 04-25-2023 T4 [Mass/Vol] 12.50 ug/dL Normal 4.80-13.90 [facility] Comment on above: Performed By: #### T SH, CMP, FT3, LIPID, T4 #### [facility] [address] [place] [address] Dr. Gold Hartmann TSHon 04-25-2023 TSH 1.628 uIU/mL Normal 0.358-3.740 [facility] Comment on above: Performed By: #### T SH, CMP, FT3, LIPID, T4 #### [facility] [address] [place] [address] Dr. Gold Hartmann VITAMIN D 25 OHon 04-25-2023 VIT D 25-OH 64.4 ng/mL Normal [facility] Comment on above: Performed By: #### V AMINATA IRON #### [facility] [address] [place] [address] Dr. Gold Hartmann VIT D RANGES SEE BELOW Normal [facility] Comment on above: Result Comment: <20 ng/mL Vit D deficient 20 - <30 ng/mL Vit D insufficient 30 - 100 ng/mL Vit D sufficient >100 ng/mL Potential Toxicity Performed By: #### V AMINATA IRON #### [facility] [address] [place] [address] Dr. Gold Hartmann PAP ACOG PANEL 2: 30 to 65on 04-24-2023 Age Gdln ACOG Testing 30-[address] [facility] Comment on above: Performed By: #### [id number] #### [facility] [address] [address] [address] Gold Hartmann Established Visit (Otolaryng ology)on [...] Oral Tablet Extended Release 24 Hour Ipratropium Butler 0.03 % Nasal SolutionUSE 2 SPRAYS IN [...] Jan 24 2023 10:45AM EST (Author) Normal [employer] Tobacco Screening.on 023 Fall risk assessment c) Not medically indicated [facility]Otol[facility]o [facility] Work Phone: Tobacco use status [facility] b) No MG-Otolaryngo logyuback[facility] Work Phone: Established Visit (Otolaryng ology)on 09-13-2022 [...] Recorded: 13Sep2022 10:53AM Height5 ft 3 in Xfraty215 lb 8 oz BMI Xqxwbskolm89.67 kg/m2 BSA Calculated1.79 Tobacco Useb) No PHQ-2 [...] Sep 14 2022 8:57AM EST (Author) Normal [employer] Tobacco Screening.on Adult depression screening assessment No MG-Otolaryn go logyuback[facility] Work Phone: Fall risk assessment a) No falls within the last year MG-Otolaryngo [employer] Work Phone: Tobacco use status [facility] b) No [facility]-Otolaryngo [facility] Work Phone: Order Reconciliationon 09-06 Order Reconciliation Page 1 Discharge Reconciliation Document Reconciliation Type: Discharge requested on behalf of Shaylee Juan (Resident) done by Shaylee Juan ( (Resident)) Discharge - Reconciliation: 06-Sep-2022 14:51 by: Shaylee Juan ( (Resident)) Home Medications EnteredHOME MEDICATIONS AT DISCHARGE DateReconciliation Comment/ Additional Information ashwagandha 29-Aug-2022 13:25 ashwagandha 29-Aug-2022 13:25 ashwagandha is continued as ashwagandha buPROPion 300 mg/24 hours (XL) oral tablet, [...] required o (more content not included)... Normal [facility] Patient Profile - Preop v3on 08-29-2022 Patient Profile - Preop v3 Patient Profile - Preop: Initial Info: Patient DemographicsName: RAHUL LAGUNA Date: 1985 Address: [address] [place] [address] Primary Phone [phone] How to be AddressedAmy Spoken Language PreferredEnglish Source of Informationpatient Stated Reason for AdmissionSinus surgery , septum repair Primary Contact Name and NumberEarle Rafael [phone] Limitations on Visitors/Phone Callsnone Medications Brought to Hospitalno General Health: Weight in kg77.4 kilogram(s) Weight in okz537.6 pound(s) Weight Methodactual (measured) Scale Typestanding Height [...] Withspouse Living Arrangementshouse Resource/Environmental Concernsnone Anticipated Transition [place] [facility] Anticipated at Transitionnone Tobacco Use: Tobacco [facility] Pre-op Checklist: Arrival [id number] Arrival Time11:50 Procedure Typeseptoplasty, Turbinate reduction NPOyes Last Food [id number] 22:00 Last Clear Fluid [id number] 08:00 ID Band On Patientpatient ID (name), [...] Last Updated: 06-Sep-2022 12:11 by Katie Carbajal) [facility] Established Visit (Otolaryng ology)on 03-08-2022 Established [...] Modified yann maneuver with benefit bilaterally Modified Trinity Maneuver: Performed with a cotton tipped applicator, markedly improves breathing bilaterally. 1 Amended By: Junaid Alex; Aug 19 2022 8:33 AM ESTPast Medical History History of depression (V11.8) (Z86.59) History of gastroe (more content not included)... Normal [employer] Tobacco Screening.on 022 Fall risk assessment a) No falls within the last year MG-Otolaryngo [facility] Work Phone: Tobacco use status [facility] b) No MG-Otolaryngo [facility] Work Phone: Coding Summary.on 02-06-2022 Coding Summary. CD:[id number] Gh0 bWw+PGhlYWQ+QO3MTWGnR38 wkKOzvI0GR1nHRO8XAUYUGH VBTY3PKH0laXQ0AYmxX3Oxv iAv QpdrrHFrPV59CGr4TLT3pHb nVLfjqJ9wgUEhP0k2YkIkLC 27hC86FUddSQTsEhG3UpBvo jsgbWFy X7sjPdLojNQkOie+PHRhYmx lIHdpZHRoPScxMDAlJyBzdH oiDJ7lQx9vAKKtNHVgfKrzb HNlOiBj z5wrJQYvNYrsQU1dmRanZ3B ivSE9YPTeh9w2Ho32xLV+PH LrJYG4kFkvMDznf235BeSyp 5vgGSC0 iIPdHYqmWRG6T46so8E0NYE tXODmGTD5hBG1xD8mfWqbon zaJ7AhtKMjGiL7DRM8yTSbx O0qtCcc tmpjsQ9bDdh+P71TZO5WDXK RYC0AZqv7Y4IoPxvlkWT+PC 95YROxQX81hBMpeIZzz3wln Ll9GcRf BGNcIFP4kFyfDJuvk7CuMJR cJ20rqDSvu9E5CDStfLggkD PaYkTjjWK6gV3zDXybbhkoi 2hvdzsn Picvb2ijxd16tK84P64uSGp kROYgOVV6MJBrHZDrnYauqg 6omF0aUm3+HLdgs4jhb7wij Lb3QsXr RFPwokQeyIiwTFO0n7WsVd8 8X6YccLwpi1ZyUlu9fv75uH Khi7A7nRN6DAfgBMEemJ3mL WxlZnQ6 QZKnVyJvuG19zIHsBXzwUo6 gdFboyYkwWP9bBJNkzlqlVX IfzI0xVTTltWYquHddPB4bW TBpbjtm c548LzWoXLG4XPPdyKUjF2K tnB4dSpUzLBRsYEZlC3PeoG EtVKgrI601ATctSfI6MNLln bEdO0Xw TBVhwAbhVrE7m5M3Ee4Fn0G vbreeKDD9ZMyrODKnEuV3Cf SnHrM5I7EmVyp5RNTsvSriH S2gU3Uo HEIkmvpjjasirGD4VPMlAWE zjS10jLUhYObuRk7qd8X0o0 90GICxDBZcrD92Ap3kiDzfK TBwdCBU cV8nzuwzw6mvyrkyJaPtATD sFSc6ZGw1FIXriUgnMcSpBB R7YnA7RKT9sNXrrH7ljQkwx wrfcB4j Oyc+V76uuP5uZJO0TRZ5ndo sBHKaslKyQA32UJ50U1RxTx wvdGFibGU+PGRpdiBzdHlsZ G9qAyBt m3ecc7CqDFlhV3RjNAGjFEf iVdy2LFPaWLE0lGW5rP2iDN RqBJkwh3X8uYU6N8BuymClc a5co7ea IHTcBPxiF28qiCAnv0V1NTV wxIG7NFYaaOjvTiDooX83Wo c+VSIyrVwsf0HlPhhyo5iab 8vhkSg4 FzSyQXXkvrPuqRmlNFT3r2V tRi39Y67uEAtyOZPlCNZmGX IgKQUphIdceb3gcJ6rZw1+P GNvbCB3 ePD6eS9kBHErHwL1TKrdM41 6RxEnuZTzAutut3xlp1hikR k9AvGuCRMjriXxqRehCZW6l 5UkMb32 O66eDDwrPKIaQMIwSEVuIUK jhGgrqq0bvI9dCv0+PC9jb2 ajft27tA83vSF+BPDpVAB4l WxlPSdw UTDjwO3yHNzaScV6HMBlRqQ fvG13rVLkMBzlGy9zlAjlaG erCX3yJTThuenan474HlWbl 2xkIDEw xVHlBMjyBSZ2M19ai2F8TEU aSVViJHL9mIU3qC5hfNxodp ogbGVmdDsgdmVydGljYWwtY DikD577 IHRvcDsnPlBhdGllbnQgTmF aFCs0T0LqZgi8ACKxfLctDB 1ydZBeJHgrAc1lvOnorFzeQ Q9cLIDs tpmgg887RsNkf2aaBRSunUN qMXetDSY2E28yw0K5ETVvLY AuZEZ3mOM1bG2coJkrxuzet GVmdDsg gjYljNtdWXxeZYigX311JFY gzKzyXnCbljBzHAUpuXB5XQ 69VW04gKIey8N7eDO2W4OyZ GRpbmct eruqkQB3JEOsSRJvcV74Wz5 xzSstHk6aTNEgQVD8IIRlnG AvV4QgoB5qTvBoBTVeTGLtX 3RleHQt BTylN990AAvwNaW1FAYnikW yL8BfSMDbdLroRxV0h4O2Bk 6XJ0F2HD04YH29uSFxk3O1f TX6Z6Po LGGwtgltdabplSL1ALBuQDS giS90Ty6yrGpbLt3mVCZiFT Z0XEQfzVOiR3AriS2kRpYdM DAwMDAw Z4HrrCBcZUgvS574QWcrDpQ 2KSKcloMoX9NdQMQvbQcnGa F0k2R8Cj6YVBz0OX05ZZ79i FNxl6W2 bBK7G8NoQFJkvnlyzqmjqRC 8RXXcDTQssO70Gg4alZcxKz 4kCLLbLCA0DYCvoAUyC2Tbp Y7rMiSq SNMbXGRhG9MpkEHyTEtlV09 1LZlsLqI1ZRQybmQtB8ByUO EdoPlxBkN3c6R4Om6AKEExI T33VZQ6 eVE1SM92FY42A0OdTvnobAM ibGU+PHRhYmxlIHdpZHRoPS bgIDHbSwIdmByzNO1nIu6vD GVyLWNv cAvkkQGbCmRwr6qgULToYTm kTR3tqAxsJ6QahYK3HUDcy2 b5Sx99L81gB5DkxEC+PGNvb UY8jDK8 rB4uFqQwAcG9ZWefV112XwF yrHGlTfsqq8ifw6bfiNr1Gq I1KAMubfTwqIqtACC8r9WcM d76P37k IHdpZHRoPSIxNSUiIHZhbGl kae7cbF3gZf2+JVCloDB7fX E0lH9eUsQtAmS8HCnsA926O nRvcCIv Pdfia4fue6qthSe9LmTnQFU etzPryLmoLAN2z6LnCa39L2 PkdOfpr7FnVgq1kl62vIXgs 9U7lSK1 T7UuJWCnkjvkuMQhnJswXQ7 oEIVebkliBZLgbY9yKBTeU3 d2WzQmOcG5ASmeM5EpjdU5W DEwcHQg CHpfRKR3P93qv9C4GZBoGEE qAUN1aJD3eF5rfDvxtneujE VmdDsgdmVydGljYWwtYWxpZ 246IHRv gZefUWDqdB8oCGFatDBijXr sFK6cYNTfqqniGt8CFFQGRQ xMLCBBTVkgSjwvdGQ+PHRkI IP2bUoy MRxtBJHtkN9lGWYvG3p3CaR zAyT3ZUbfB9OxMPMkbantAo 89uK5cBiFuUcP8WNqnX6Cai cU1EGWz uWJsNSecHLP3J83qc9T5MWW eRALqBUK1iJK7pE5lkBcbfx ogbGVmdDsgdmVydGljYWwtY VliY875 VVRqvGlvWoVfJvH7WnI8CSG 6G2PoKfy1HEXzsMreRI5unC SaNYgxTa5osYcdkJioQS5nH TBpbjtw GUPczD6kDQPaaTNmlMxxTK0 gHRWymtvmt921EdHdZFJ2JL UoiSXfF9SkkM9hToYlPOCdH VPgQ0Vk tKLdTSryP972AWssOpB4WXP rsdKrQ7LfQRRwlXchSmZ7p4 N1Xk8qKSENWPYgfawyoSY+P HRkIHN0 xShnSNgyFWKzqE9bNNKsQ3d 8NaDjGgP7LDaqK3IsLBUlca hjNk81mC7dYfNpEyH3CEedW 1AufxA3 OSIpfPWmIYbeJUS4L84ma8Q 1OAFrZZJhYJZ8zIE3sL5enS lnbjogbGVmdDsgdmVydGljY WwtYWxp G690STByvEwyWpTohSOgXCc vdGQ+DJEwXKC8nUqnTCquDK TajB4zOMCkM5q7EtFbUkN8K WzcI9Uk KXVsszrjTs72uK8rHmNpPlN 9WItmC6AthbG8TFAnrEVtVF peIBL3U46zv9I1GVHePOWhG JR1sKF5 zC9yqNopnquqzYOujBgdlvJ hhXvnEThhISitN365NKFrnK qvHb71oERprSionzW5Y4MsZ jwvdHI+ KE52WRAdSC26nKLgySHoe3p tdOu1JrOdYRLdXZH6hIfwJE qix2MlFRSnJ84dmYOpe7A7I GNvbGxh kUNkIcQugAA4cW3hMKcznzp vi4vsfjmaFxegp6nxrz40zG 82A69cUVntGEVmAYNmLXXcB HZhbGln ev9nvF3kQy8+VVCthLP9nDQ 0pR1rMuXpJdA8JBnsM455Tp RbcFAhJvfvb1xlg4ydxLm1Z jIwJSIg crHhcOibOGI0r9LdZt46C51 sIHdpZHRoPSIyMCUiIHZhbG udkl8wmE2bBl3+HB3kh4vio h68dX14 dHI+QJIuTSU7gMwvELpsNWV rcW9aMLczIyT8ODDwVePztT 11dTAfAXrgIw1tiXbmiJruM P0oJNIw pueqc204EwTth2iqNDNnyZS oCIeiRHC0G11dd2N7MOOfCC EmNOE5sJC0kL9tjSmfrbqhm GVmdDsg jiTmfAqxCUxfAQsvJ320LJS mjKawKtUamSLlC8kabrHMSC 1lOjwvdGQ+FZGqEFE8vWuhS SdwYWRk tE4nLPBiD8t5TmAjTdM1IVt tL6WpdkT1OSBgqGPoOSSpkU SRbC2touvkl6zipmsoHsOpA DAwMDt0 BYs8YDKeoNdsKzLiSLZ3YtF 5DQI3pTMyaH3ljLrawjxrxC 9wOyc+RklOOjwvdGQ+PHRkI MX7hEsq HDtqZADfoG4uPCGfH0u9ZyN mYaW0QWfzR5QjyoM4RJZcdH FqQGJhsOCNiA1aimhea5sek jogIzAw SKQxBWu6XDf7SOPvuJgdObC bDWK7IeT4GYC4nDUvwM7oeR loxvtaoY2rHnc+TVJOOjwvd GQ+PHRk YKP7lJpaGUyjUZSjfD5pGXJ rX8n4GlSoRfQ1NKseB0Zwzs N2OETmzZTkKAHjyCMLdL4wt czyv5ev bosxPpExTNIjLDl8LCd2KAV wqNcqJnRbTRU5YcU6ISO0hJ DauR1yvKnmznvpvA2oYrn+U GV5QMF8 YU25PO47E0PkJiqnxKXnhJK +PHRhYmxlIHdpZHRoPScxMD LbHwJmbBqpMS0rQr6pVOWlH WNvbGxh cHNl (more content not included)... Normal [facility] CT Maxillofacial w/o Contras ton 02-01-2022 CT [...] V. Transcribed by: JOHN Technologist: JOANNE Normal [facility] Consent for Treatmenton Consent for Treatment [id number]#1.00C D:127 Normal [facility] Physician Orderon 01-29-2022 Physician Order [id number]#1.00C D:127 Normal [facility] Physician Orderon 01-28-2022 Physician Order [id number]#1.00C D:127 Normal [facility] Physician Orderon 01-02-2022 Physician Order [id number]#1.00C D:127 Normal [facility] FLUORO FOR SURGICAL PROCEDUR ESon 11-16-2018 FLUORO FOR SURGICAL PROCEDURES EXAMINATION: FLUOROSCOPY FOR SURGICAL PROCEDURES:CLINICAL HISTORY: PAIN.FINDINGS: Fluoroscopy time was 67 seconds. A total of 6 fluoroscopic images were obtained by Dr. Damon during the anterior cervical discectomy. Interbody fusion device seen positioned at C5-C6 disc space. Please refer to operative report for further details. IMPRESSION: FLUOROSCOPIC ASSISTANCE PROVIDED FOR OPERATIVE GUIDANCE.Interpreted by:ALONA Kayigned by:Jose A Webber MD11/16/18inal result Normal [facility] Surgical Specimenon 11-16-20 18 Surgical Specimen Invalid Interpretation Code 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 ALIFA/ALIFACLINICAL INFORMATION:Cervical HNP, weakness.SPECIMEN:Cervical DiscGROSS DESCRIPTION:The specimen is received in formalin in a container is labeled with thepatient's name and designated as spine . The specimen consists ofmultiple grayish-white cartilaginous tissue fragments measuring inaggregate 2.0 x 1.5 x 0.3 cm. Sections outside sales representative insurance are submitted inone cassette after a brief decalcification. JESSA/OZIELPT: [id number] THOMAS M.D. 11/17/2018 Electronically signed out by Page 1 of 1 Type and 3 cell Screen OB Ca ptureon 11-16-2018 Type and 3 cell Screen OB Capture PATIENT: RAFAEL Patino LOC: [facility] NONBILL# : [id number] : 1985 SEX: FORDERED BY: NELSON GERMAN ORDERED : 11/16/2018 08:38 COLLECTED: 11/16/2018 08:45ORDER : [id number] RECEIVED : 11/16/2018 08:46 TEST NAME RESULT UNITS RANGES ABN FL STABORH Capture A POS FAntibody 3 Cell Scrn Captu NEG F --------- Normal [facility] UR HCG Qualitativeon 018 HCG.beta subunit ( test) Ql (U) Negative Normal Detects [facility] Social History Date Type Detail Facility Non-smoker Non-smoker [facility] Work Phone: Vital Signs Date Time Vital Sign Value Performing Clinician Facility 01-24-2023 12:11-0500 Body height 160.02 cm Bairon Perla Work Phone: [facility] Work Phone: 01-24-2023 12:11-0500 Body mass index (BMI) [Ratio] 29.94 kg/m2 Bairon M Hoy Work Phone: [facility] Work Phone: 01-24-2023 12:11-0500 Body surface area Derived from formula 1.8 m2 Bairon M Hoy Work Phone: [facility] Work Phone: 01-24-2023 12:11-0500 Body weight 76.66 kg Bairon M Hoy Work Phone: [facility] Work Phone: 09-13-2022 10:53-0400 Body height 160.02 cm Bairon M Hoy Work Phone: [facility] Work Phone: 09-13-2022 10:53-0400 Body mass index (BMI) [Ratio] 29.67 kg/m2 Bairon M Hoy Work Phone: [facility] Work Phone: 09-13-2022 10:53-0400 Body surface area Derived from formula 1.79 m2 Bairon M Hoy Work Phone: [facility] Work Phone: 09-13-2022 10:53-0400 Body weight 75.98 kg Bairon M Hoy Work Phone: [facility] Work Phone: 09-13-2022 10:53-0400 0 1 Bairon M Hoy Work Phone: [facility] Work Phone: Comment on above: [employer] 03-08-2022 13:09-0400 Body height 160.02 cm Bairon M Hoy Work Phone: [employer] [facility] Work Phone: 03-08-2022 13:09-0400 Body mass index (BMI) [Ratio] 31.71 kg/m2 Bairon Perla Work Phone: [employer] [facility] Work Phone: 03-08-2022 13:09-0400 Body surface area Derived from formula 1.84 m2 Bairon Perla Work Phone: [employer] [facility] Work Phone: 03-08-2022 13:09-0400 Body temperature 97.5 [degF] aBiron Perla Work Phone: [facility] [employer] [facility] Work Phone: 03-08-2022 13:09-0400 Body weight 81.19 kg Bairon Perla Work Phone: [employer] [employer] [facility] Work Phone: 03-08-2022 13:09-0400 0 1 Bairon Perla Work Phone: [facility] Work Phone: Comment on above: [employer] History of Present illness Narrative 01-24-2023 Note Date & Type Note Facility 01-24-2023 History of Present illness Narrative doing well after reconstructive rhinoplastyseptum midlinenasal airway patent blcontinue saline spraysRTC 4-6 months BI-Xyknonbbdjmbvn-Fldszep e Work Phone: Clinical Note 09-06-2022 Note Date & Type Note Facility 09-06-2022 Note PROCEDURE DETAILS Preoperative Diagnosis: Nasal obstruction, twisted nose deformity Postoperative Diagnosis: Nasal obstruction, twisted nose deformity Surgeon: Dr. Junaid Alex Resident/Fellow/Other Hand Carver: Shaylee Song, PGY-3 Procedure: Open Septorhinoplasty with [...] to achieve excess upper lateral cartilage for auto-administration intern technique. A right intermediate osteotomy was performed. Bilateral lateral osteotomies were performed with 3 mm osteotome. With dorsal hump reduction, auto-administration intern grafts were then created with turn in of the upper lateral cartilage and suture fixed with 5-0 PDS in between the upper lateral cartilage and septum bilaterally, in order to treat the internal nasal valve, stabilize the midvault, and control/optimize the midvault width. The tip was stabilized using intradomal / interdomal sutures. Bilateral inferior turbinate reduction and lateralization was then performed. A [employer] fine needle tip bovie electrocautery was used to perform intramural cauterization for submucous resection bilaterally. A Iron elevator was then used to outfracture the [...] Last Updated: 07-Sep-2022 10:31 by Junaid Alex) [facility] Clinical Note 09-06-2022 Note Date & Type [...] the note. I personally evaluated the patient [id number] Electronic Signatures: Shaylee Juan (Resident)) (Signed 06-Sep-2022 06:56) Authored: History of Present Illness, Allergies, Home Medication Review, Impression/Procedure, ERAS, Physical Exam, Consent, Note Completion Junaid Alex) (Signed 07-Sep-2022 10:14) Authored: Note Completion Co-Signer: History of Present Illness, Allergies, Home Medication Review, Impression/Procedure, ERAS, Physical Exam, Consent, Note Completion Last Updated: 07-Sep-2022 10:14 by Junaid Alex) [facility] History of Present illness Narrative Note Date [...] no masses/lesionsModified yann maneuver with benefit bilaterallyModified Trinity Maneuver: Performed with a cotton tipped applicator, markedly improves breathing bilaterally. BT-Waufulyjjfvius-Xdxphqh e Work Phone: History of Present illness [...] cotton tipped applicator, markedly improves breathing bilaterally. ZO-Tmehrlmvuwnlge-Yfmqxl ke Work Phone: History of Present illness Narrative Note Date & Type Note Facility History of Present illness Narrative doing well. here for splint removalnasal splints removednasal swelling expectedseptum midlinenasal airway patent blcontinue saline sprays and vaseline ointment to naresRTC 4-6 months LE-Zqstxsyjfmihwb-Tmlpckna Work Phone: Summary Purpose Family History Unknown [...] section and content) DATE CREATED AUTHOR 11/21/2018 [facility] DATE CREATED AUTHOR AUTHOR'S ORGANIZ ATION 02/17/2022 [facility] DATE CREATED AUTHOR AUTHOR'S ORGANIZ ATION 01/25/2023 [facility] DATE CREATED AUTHOR AUTHOR'S ORGANIZ ATION 01/25/2023 [employer] DATE CREATED AUTHOR AUTHOR'S ORGANIZ ATION 05/09/2023 [employer] FOR RECORDS PERTAINING TO PATIENTS WHO ARE [...] BE BASED ON THE PRIMARY CLINICAL RECORDS. [facility] [employer] [facility]. provides no warranty or guarantee of the accuracy or completeness of information in this document.
[2024-05-22 11:10] LABS: Age Gdln ACOG Testing Note (.); HPV Aptima Negative (Negative); IGP, Aptima HPV, rfx 16/18,45 Note (.)
== END 2024-05-18 19:51 | disposition home or self-care (01) ==
LOC: LAB 19:50
PROVIDERS: PCP Family Medicine; Visit Provider Obstetrics & Gynecology
DX: Z01.419 Encounter for gynecological examination (general) (routine) without abnormal findings (principal)
CPT/HCPCS: 87624; 88175